=== PATIENT | male | born 1970 | race Caucasian/White ===

== ENCOUNTER 2018-03-14 22:33 | Inpatient (IN) | payer MEDICAID, OTHER ==
[~2018-03-14] VITALS: Ht 170.2 cm; Wt 95.3 kg
[~2018-03-14 22:33] MED LIST: DIVA-78 PO; HALO10 PO; QUET200T PO; TEAROS OU
[2018-03-14 23:49] LABS: BASOPHILS % (AUTO) 0.9 % (0.0-2.0); EOSINOPHILS % (AUTO) 7.4 % (1.0-6.0); HEMATOCRIT 42.7 % (41-53); HEMOGLOBIN 14.7 g/dL (13.5-17.5); LYMPHOCYTES # (AUTO) 2.2 K/uL (1.0-4.8); LYMPHOCYTES % (AUTO) 27.6 % (22.0-44.0); MEAN CORPUSCULAR HEMOGLOBIN 34.6 pg (26.0-34.0); MEAN CORPUSCULAR HGB CONC 34.5 G/dL (31.0-37.0); MEAN CORPUSCULAR VOLUME 100 fL (80-100); MONOCYTES # (AUTO) 0.9 K/uL (0.1-1.0); MONOCYTES % (AUTO) 11.1 % (2.0-9.0); NEUTROPHILS # (AUTO) 4.2 K/uL (1.8-7.7); PLATELET COUNT (AUTO) 144 K/uL (150-450); RED BLOOD CELL COUNT(AUTO) 4.26 MIL/uL (4.50-5.90); RED CELL DISTRIBUTION WIDTH 13.2 % (11.5-14.5)
[2018-03-15 00:11] LABS: ANION GAP 9 mmol/L (8-16); CARBON DIOXIDE 29 mmol/L (22-29); CHLORIDE 103 mmol/L (98-107); CREATININE 0.89 mg/dL (0.60-1.30); GLOMERULAR FILTR. RATE CALC > 60 mL/min (>60); GLUCOSE,RANDOM 100 mg/dL (70-110); POTASSIUM 3.7 mmol/L (3.5-5.1); SODIUM SERUM 141 mmol/L (136-145); UREA NITROGEN, BLOOD 10 mg/dL (7-18)
[2018-03-15 00:15] LABS: ALANINE AMINOTRANSFERASE 40 U/L (12-78); ALBUMIN 3.8 g/dL (3.4-5.0); ALKALINE PHOSPHATASE 75 U/L (46-116); ASPARTATE AMINOTRANSFERASE 37 U/L (15-37); BILIRUBIN,TOTAL 0.3 mg/dL (0.1-1.0); TOTAL PROTEIN, SERUM 6.8 g/dL (6.4-8.2)
[2018-03-15 00:44] LABS: AMPHET/METH SCREEN,URINE NEGATIVE (NEGATIVE); BARBITURATE SCREEN, URINE NEGATIVE (NEGATIVE); BENZODIAZEPINES SCREEN,URINE NEGATIVE (NEGATIVE); CANNABINOID SCREEN,URINE NEGATIVE (NEGATIVE); COCAINE SCREEN,URINE NEGATIVE (NEGATIVE); METHADONE SCREEN, URINE NEGATIVE (NEGATIVE); OPIATE SCREEN,URINE NEGATIVE (NEGATIVE); PHENCYCLIDINE SCREEN,URINE NEGATIVE (NEGATIVE)
[2018-03-15] MEDS ORDERED: HALOPERIDOL LACTATE 5 MG/ML VIAL ONE (02:52)
[2018-03-15] MEDS ORDERED: DiphenhydrAMINE HCL 50 MG/ML VIAL ONE (02:52)
[2018-03-15] MEDS ORDERED: LORazepam 2 MG/ML VIAL ONE (02:52)
[2018-03-15] MEDS ORDERED: DiphenhydrAMINE HCL 50 MG/ML VIAL IM ONE (03:00)
[2018-03-15] MEDS ORDERED: HALOPERIDOL LACTATE 5 MG/ML VIAL IM ONE (03:00)
[2018-03-15] MEDS ORDERED: LORazepam 2 MG/ML VIAL IM ONE (03:00)
[2018-03-15] MEDS ORDERED: HALOPERIDOL 5 MG TABLET PO PRN (03:30)
[2018-03-15 04:24] LABS: APPEARANCE,URINE CLEAR (CLEAR); BILIRUBIN,URINE NEGATIVE (NEGATIVE); GLUCOSE, URINE (UA) NEGATIVE (NEGATIVE); KETONES,URINE NEGATIVE (NEGATIVE); LEUKOCYTE ESTERASE ,URINE NEGATIVE (NEGATIVE); NITRATE,URINE NEGATIVE (NEGATIVE); OCCULT BLOOD,URINE NEGATIVE (NEGATIVE); PROTEIN,URINE NEGATIVE (NEGATIVE); UROBILINOGEN,URINE 0.2 mg/dL (<=1.0)
[2018-03-15] MEDS ORDERED: QUEtiapine FUMARATE 100 MG TABLET PO ONE (09:30)
[2018-03-15 16:05] VITALS: BP 115/79
[2018-03-15] MEDS: LORazepam 2 MG TABLET PO PRN (16:24)
[2018-03-15] MEDS ORDERED: CloNIDine HCL 0.1 MG TABLET PO PRN (16:45)
[2018-03-15] MEDS ORDERED: PETROLATUM,WHITE 71 GM JELLY TP PRN (16:45)
[2018-03-15] MEDS ORDERED: IBUPROFEN 400 MG TABLET PO PRN (16:45)
[2018-03-15] MEDS ORDERED: LOPERAMIDE HCL 2 MG CAPSULE PO PRN (16:45)
[2018-03-15] MEDS ORDERED: ALBUTEROL SULFATE HFA 90 MCG/PUFF 8 GM INHALER IH PRN (16:45)
[2018-03-15] MEDS ORDERED: ACETAMINOPHEN 325 MG TABLET PO PRN (16:45)
[2018-03-15] MEDS ORDERED: GuaiFENesin/D-METHORPHAN [SUGAR-FREE] 200-20MG/10 ML SYRUP UDCUP PO PRN (16:45)
[2018-03-15] MEDS ORDERED: DOCUSATE SODIUM 100 MG CAPSULE PO PRN (16:45)
[2018-03-15] MEDS ORDERED: MAGNESIUM HYDROXIDE SUSPENSION 30 ML UDCUP PO PRN (16:45)
[2018-03-15] MEDS ORDERED: ONDANSETRON HCL 4 MG TABLET PO PRN (16:45)
[2018-03-15] MEDS ORDERED: MAG HYDROX/AL HYDROX/SIMETH ES 30 ML SUSPENSION UDCUP PO PRN (16:45)
[2018-03-15] MEDS ORDERED: PNEUMOCOCCAL VACCINE POLYVALENT 0.5 ML VIAL [PPSV23] IM ONE (17:00)
[2018-03-15] MEDS: DIVALPROEX SODIUM 500 MG DR TABLET PO SCH (17:00)
[2018-03-15] MEDS: QUEtiapine FUMARATE 200 MG TABLET PO SCH (17:00)
[2018-03-16 01:12] VITALS: BP 112/77
[2018-03-16] MEDS: LORazepam 2 MG TABLET PO PRN ×3 (06:27→18:11)
[2018-03-16] MEDS: QUEtiapine FUMARATE 100 MG TABLET PO PRN ×2 (06:27→10:41)
[2018-03-16] MEDS: DIVALPROEX SODIUM 500 MG DR TABLET PO SCH ×2 (08:19→17:34)
[2018-03-16] MEDS: NICOTINE 14 MG/24 HOUR PATCH TD SCH (08:19)
[2018-03-16] MEDS: QUEtiapine FUMARATE 200 MG TABLET PO SCH ×2 (08:19→17:34)
[2018-03-16 08:34] LABS: BASOPHILS % (AUTO) 0.8 % (0.0-2.0); EOSINOPHILS % (AUTO) 5.4 % (1.0-6.0); HEMATOCRIT 46.7 % (41-53); HEMOGLOBIN 16.1 g/dL (13.5-17.5); LYMPHOCYTES # (AUTO) 1.7 K/uL (1.0-4.8); LYMPHOCYTES % (AUTO) 26.6 % (22.0-44.0); MEAN CORPUSCULAR HEMOGLOBIN 35.3 pg (26.0-34.0); MEAN CORPUSCULAR HGB CONC 34.5 G/dL (31.0-37.0); MEAN CORPUSCULAR VOLUME 102 fL (80-100); MONOCYTES # (AUTO) 0.5 K/uL (0.1-1.0); MONOCYTES % (AUTO) 8.4 % (2.0-9.0); NEUTROPHILS # (AUTO) 3.7 K/uL (1.8-7.7); NEUTROPHILS % (AUTO) 58.8 % (40.0-70.0); PLATELET COUNT (AUTO) 158 K/uL (150-450); RED BLOOD CELL COUNT(AUTO) 4.57 MIL/uL (4.50-5.90); RED CELL DISTRIBUTION WIDTH 13.3 % (11.5-14.5)
[2018-03-16 08:43] LABS: HEMOGLOBIN A1C 5.3 % (4.5-6.2)
[2018-03-16 08:47] VITALS: BP 106/75
[2018-03-16 09:03] LABS: ALANINE AMINOTRANSFERASE 37 U/L (12-78); ALBUMIN 3.8 g/dL (3.4-5.0); ALKALINE PHOSPHATASE 71 U/L (46-116); ANION GAP 8 mmol/L (8-16); ASPARTATE AMINOTRANSFERASE 28 U/L (15-37); BILIRUBIN,TOTAL 0.3 mg/dL (0.1-1.0); CALCIUM, TOTAL 8.5 mg/dL (8.8-10.5); CARBON DIOXIDE 27 mmol/L (22-29); CHLORIDE 104 mmol/L (98-107); CHOL/HDL RATIO 3.3 (4.2-7.3); CHOLESTEROL 147 mg/dL (131-200); CREATININE 0.83 mg/dL (0.60-1.30); GLOMERULAR FILTR. RATE CALC > 60 mL/min (>60); GLUCOSE,RANDOM 115 mg/dL (70-110); HDL CHOLESTEROL 44 mg/dL (40-60); LDL CHOL (CALC.) 84 mg/dL (0-130); POTASSIUM 4.2 mmol/L (3.5-5.1); SODIUM SERUM 139 mmol/L (136-145); THYROID STIMULATING HORMONE 0.95 uIU/mL (0.36-3.74); TOTAL PROTEIN, SERUM 6.9 g/dL (6.4-8.2); TRIGLYCERIDES 95 mg/dL (15-150); UREA NITROGEN, BLOOD 12 mg/dL (7-18); VALPROIC ACID 39 mcg/mL (50-100)
[2018-03-16] MEDS ORDERED: LORazepam 2 MG/ML VIAL ONE (15:05)
[2018-03-16] MEDS ORDERED: DiphenhydrAMINE HCL 50 MG/ML VIAL ONE (15:06)
[2018-03-16] MEDS ORDERED: LORazepam 2 MG/ML VIAL IM ONE (15:15)
[2018-03-16] MEDS ORDERED: DiphenhydrAMINE HCL 50 MG/ML VIAL IM ONE (15:15)
[2018-03-17 01:00] VITALS: BP 136/72
[2018-03-17] MEDS: LORazepam 2 MG TABLET PO PRN ×4 (01:22→16:09)
[2018-03-17] MEDS: QUEtiapine FUMARATE 100 MG TABLET PO PRN ×3 (01:22→10:44)
[2018-03-17 08:08] VITALS: BP 140/87
[2018-03-17] MEDS: NICOTINE 14 MG/24 HOUR PATCH TD SCH (08:43)
[2018-03-17] MEDS: QUEtiapine FUMARATE 200 MG TABLET PO SCH ×2 (08:43→16:09)
[2018-03-17] MEDS: DIVALPROEX SODIUM 500 MG DR TABLET PO SCH ×2 (08:43→16:09)
[2018-03-17 17:01] VITALS: BP 123/83
[2018-03-18] MEDS: LORazepam 2 MG TABLET PO PRN ×4 (03:10→16:23)
[2018-03-18] MEDS: QUEtiapine FUMARATE 100 MG TABLET PO PRN ×2 (03:11→12:22)
[2018-03-18 03:42] VITALS: BP 118/80
[2018-03-18] MEDS: QUEtiapine FUMARATE 200 MG TABLET PO SCH ×2 (08:15→16:23)
[2018-03-18] MEDS: NICOTINE 14 MG/24 HOUR PATCH TD SCH (08:15)
[2018-03-18] MEDS: DIVALPROEX SODIUM 500 MG DR TABLET PO SCH ×2 (08:15→16:23)
[2018-03-18 08:16] VITALS: BP 139/84
[2018-03-18 16:00] VITALS: BP 133/76
[2018-03-19] MEDS: ZOLPIDEM TARTRATE 10 MG TABLET PO PRN ×2 (00:15→20:30)
[2018-03-19] MEDS: QUEtiapine FUMARATE 100 MG TABLET PO PRN ×2 (00:15→12:23)
[2018-03-19 00:20] VITALS: BP 134/68
[2018-03-19] MEDS: LORazepam 2 MG TABLET PO PRN ×4 (06:23→20:30)
[2018-03-19] MEDS: QUEtiapine FUMARATE 200 MG TABLET PO SCH ×2 (08:31→17:09)
[2018-03-19] MEDS: NICOTINE 14 MG/24 HOUR PATCH TD SCH (08:31)
[2018-03-19] MEDS: DIVALPROEX SODIUM 250 MG DR TABLET PO SCH ×2 (08:31→17:09)
[2018-03-19 08:41] VITALS: BP 123/71
[2018-03-19 16:00] VITALS: BP 126/80
[2018-03-20 01:27] VITALS: BP 130/83
[2018-03-20] MEDS: LORazepam 2 MG TABLET PO PRN ×4 (06:29→21:05)
[2018-03-20] MEDS: HYPROMELLOSE 0.5% 15 ML OPHTHALMIC SOLUTION OU PRN ×2 (06:59→15:00)
[2018-03-20 08:04] VITALS: BP 128/81
[2018-03-20] MEDS: NICOTINE 14 MG/24 HOUR PATCH TD SCH (08:39)
[2018-03-20] MEDS: DIVALPROEX SODIUM 250 MG DR TABLET PO SCH ×2 (08:39→16:18)
[2018-03-20] MEDS: QUEtiapine FUMARATE 200 MG TABLET PO SCH ×2 (08:39→16:17)
[2018-03-20] MEDS: QUEtiapine FUMARATE 100 MG TABLET PO PRN ×2 (10:48→14:59)
[2018-03-20 17:03] VITALS: BP 126/85
[2018-03-20] MEDS: ZOLPIDEM TARTRATE 10 MG TABLET PO PRN (21:05)
[2018-03-21 00:10] VITALS: BP 128/83
[2018-03-21] MEDS: LORazepam 2 MG TABLET PO PRN ×2 (06:31→12:35)
[2018-03-21] MEDS: HYPROMELLOSE 0.5% 15 ML OPHTHALMIC SOLUTION OU PRN (07:07)
[2018-03-21 08:07] VITALS: BP 126/78
[2018-03-21] MEDS: QUEtiapine FUMARATE 200 MG TABLET PO SCH ×2 (08:25→16:33)
[2018-03-21] MEDS: DIVALPROEX SODIUM 250 MG DR TABLET PO SCH ×2 (08:25→16:33)
[2018-03-21] MEDS: NICOTINE 14 MG/24 HOUR PATCH TD SCH (08:26)
[2018-03-21 16:24] VITALS: BP 120/68
[2018-03-22 04:24] VITALS: BP 127/74
[2018-03-22] MEDS: LORazepam 2 MG TABLET PO PRN ×4 (06:36→20:33)
[2018-03-22] MEDS: QUEtiapine FUMARATE 200 MG TABLET PO SCH ×2 (08:42→16:17)
[2018-03-22] MEDS: DIVALPROEX SODIUM 250 MG DR TABLET PO SCH ×2 (08:42→16:16)
[2018-03-22] MEDS: NICOTINE 14 MG/24 HOUR PATCH TD SCH (08:44)
[2018-03-22] MEDS: QUEtiapine FUMARATE 100 MG TABLET PO PRN (13:45)
[2018-03-22 16:00] VITALS: BP 136/83
[2018-03-22] MEDS: ZOLPIDEM TARTRATE 10 MG TABLET PO PRN (20:33)
[2018-03-23 00:34] VITALS: BP 122/66
[2018-03-23] MEDS: LORazepam 2 MG TABLET PO PRN ×4 (05:30→20:56)
[2018-03-23 08:15] VITALS: BP 119/83
[2018-03-23] MEDS: QUEtiapine FUMARATE 200 MG TABLET PO SCH ×2 (08:25→16:20)
[2018-03-23] MEDS: DIVALPROEX SODIUM 250 MG DR TABLET PO SCH ×2 (08:25→16:21)
[2018-03-23] MEDS: NICOTINE 14 MG/24 HOUR PATCH TD SCH (08:28)
[2018-03-23] MEDS: QUEtiapine FUMARATE 100 MG TABLET PO PRN (12:55)
[2018-03-23 17:28] VITALS: BP 136/71
[2018-03-23] MEDS: ZOLPIDEM TARTRATE 10 MG TABLET PO PRN (20:56)
[2018-03-24 01:01] VITALS: BP 120/71
[2018-03-24] MEDS: LORazepam 2 MG TABLET PO PRN ×4 (05:05→21:26)
[2018-03-24] MEDS: QUEtiapine FUMARATE 100 MG TABLET PO PRN (05:05)
[2018-03-24] MEDS: DIVALPROEX SODIUM 250 MG DR TABLET PO SCH (08:07)
[2018-03-24] MEDS: NICOTINE 14 MG/24 HOUR PATCH TD SCH (08:08)
[2018-03-24] MEDS: QUEtiapine FUMARATE 200 MG TABLET PO SCH ×2 (08:08→16:36)
[2018-03-24 08:09] VITALS: BP 122/80
[2018-03-24] MEDS ORDERED: TUBERCULIN, PURIFIED PROTEIN DERIVATIVE 5 TU/0.1 ML SYG ID ONE (12:45)
[2018-03-24] MEDS: DIVALPROEX SODIUM 500 MG DR TABLET PO SCH (16:36)
[2018-03-24] MEDS: ZOLPIDEM TARTRATE 10 MG TABLET PO PRN (21:26)
[2018-03-25 02:03] VITALS: BP 118/79
[2018-03-25] MEDS: LORazepam 2 MG TABLET PO PRN ×4 (06:00→20:38)
[2018-03-25 08:06] VITALS: BP 140/85
[2018-03-25] MEDS: DIVALPROEX SODIUM 500 MG DR TABLET PO SCH ×2 (08:50→16:37)
[2018-03-25] MEDS: QUEtiapine FUMARATE 200 MG TABLET PO SCH ×2 (08:51→16:37)
[2018-03-25] MEDS: NICOTINE 14 MG/24 HOUR PATCH TD SCH (08:51)
[2018-03-25 16:00] VITALS: BP 136/87
[2018-03-25] MEDS: ZOLPIDEM TARTRATE 10 MG TABLET PO PRN (20:38)
[2018-03-26 01:11] VITALS: BP 126/87
[2018-03-26] MEDS: LORazepam 2 MG TABLET PO PRN ×3 (05:53→16:16)
[2018-03-26] MEDS: QUEtiapine FUMARATE 200 MG TABLET PO SCH ×2 (08:46→16:19)
[2018-03-26] MEDS: DIVALPROEX SODIUM 500 MG DR TABLET PO SCH ×2 (08:47→16:16)
[2018-03-26] MEDS: NICOTINE 14 MG/24 HOUR PATCH TD SCH (08:51)
[2018-03-26 14:34] VITALS: BP 139/84
[2018-03-26 16:00] VITALS: BP 125/81
[2018-03-27 06:07] VITALS: BP 132/82
[2018-03-27] MEDS: LORazepam 2 MG TABLET PO PRN ×2 (07:04→16:51)
[2018-03-27 08:06] VITALS: BP 133/80
[2018-03-27] MEDS: DIVALPROEX SODIUM 500 MG DR TABLET PO SCH ×2 (08:22→16:51)
[2018-03-27] MEDS: NICOTINE 14 MG/24 HOUR PATCH TD SCH (08:23)
[2018-03-27] MEDS: QUEtiapine FUMARATE 200 MG TABLET PO SCH ×2 (08:23→16:51)
[2018-03-27 16:54] VITALS: BP 101/63
[2018-03-28 05:22] VITALS: BP 109/67
[2018-03-28] MEDS: LORazepam 2 MG TABLET PO PRN (06:53)
[2018-03-28] MEDS: NICOTINE 14 MG/24 HOUR PATCH TD SCH (09:00)
[2018-03-28] MEDS: DIVALPROEX SODIUM 500 MG DR TABLET PO SCH ×2 (09:17→16:17)
[2018-03-28] MEDS: QUEtiapine FUMARATE 200 MG TABLET PO SCH ×2 (09:18→16:17)
[2018-03-28 09:49] VITALS: BP 101/60
[2018-03-28 16:19] VITALS: BP 121/65
[2018-03-29 05:02] VITALS: BP 146/82
[2018-03-29] MEDS: LORazepam 2 MG TABLET PO PRN ×3 (05:08→20:15)
[2018-03-29 08:06] VITALS: BP 136/78
[2018-03-29] MEDS: QUEtiapine FUMARATE 200 MG TABLET PO SCH ×2 (08:52→16:42)
[2018-03-29] MEDS: DIVALPROEX SODIUM 500 MG DR TABLET PO SCH ×2 (08:52→16:43)
[2018-03-29] MEDS: NICOTINE 14 MG/24 HOUR PATCH TD SCH (08:53)
[2018-03-29 16:24] VITALS: BP 111/70
[2018-03-29] MEDS: ZOLPIDEM TARTRATE 10 MG TABLET PO PRN (20:15)
[2018-03-30 05:45] VITALS: BP 127/73
[2018-03-30 08:04] VITALS: BP 115/64
[2018-03-30] MEDS: QUEtiapine FUMARATE 200 MG TABLET PO SCH ×2 (08:39→16:35)
[2018-03-30] MEDS: DIVALPROEX SODIUM 500 MG DR TABLET PO SCH ×2 (08:39→16:35)
[2018-03-30] MEDS: NICOTINE 14 MG/24 HOUR PATCH TD SCH (08:43)
[2018-03-30] MEDS: LORazepam 2 MG TABLET PO PRN ×3 (12:18→20:37)
[2018-03-30 16:36] VITALS: BP 120/71
[2018-03-30] MEDS: ZOLPIDEM TARTRATE 10 MG TABLET PO PRN (20:37)
[2018-03-31 06:24] VITALS: BP 129/70
[2018-03-31] MEDS: LORazepam 2 MG TABLET PO PRN ×3 (07:01→21:14)
[2018-03-31 08:07] VITALS: BP 119/67
[2018-03-31] MEDS: QUEtiapine FUMARATE 200 MG TABLET PO SCH ×2 (08:51→16:28)
[2018-03-31] MEDS: DIVALPROEX SODIUM 500 MG DR TABLET PO SCH ×2 (08:51→16:28)
[2018-03-31] MEDS: NICOTINE 14 MG/24 HOUR PATCH TD SCH (09:00)
[2018-03-31 16:20] VITALS: BP 130/77
[2018-03-31] MEDS: ZOLPIDEM TARTRATE 10 MG TABLET PO PRN (21:14)
[2018-04-01 03:03] VITALS: BP 129/80
[2018-04-01] MEDS: LORazepam 2 MG TABLET PO PRN ×4 (05:25→20:55)
[2018-04-01] MEDS: QUEtiapine FUMARATE 100 MG TABLET PO PRN ×2 (07:03→11:52)
[2018-04-01 08:18] VITALS: BP 139/92
[2018-04-01] MEDS: QUEtiapine FUMARATE 200 MG TABLET PO SCH ×2 (08:48→16:52)
[2018-04-01] MEDS: DIVALPROEX SODIUM 500 MG DR TABLET PO SCH ×2 (08:48→16:52)
[2018-04-01] MEDS: NICOTINE 14 MG/24 HOUR PATCH TD SCH (08:48)
[2018-04-01 16:05] VITALS: BP 134/79
[2018-04-01] MEDS: ZOLPIDEM TARTRATE 10 MG TABLET PO PRN (20:46)
[2018-04-02 00:41] VITALS: BP 118/74
[2018-04-02] MEDS: QUEtiapine FUMARATE 100 MG TABLET PO PRN (06:18)
[2018-04-02 08:05] VITALS: BP 112/66
[2018-04-02] MEDS: DIVALPROEX SODIUM 500 MG DR TABLET PO SCH ×2 (08:40→16:16)
[2018-04-02] MEDS: QUEtiapine FUMARATE 200 MG TABLET PO SCH ×2 (08:40→16:15)
[2018-04-02] MEDS: NICOTINE 14 MG/24 HOUR PATCH TD SCH (08:46)
[2018-04-02 16:44] VITALS: BP 107/86
[2018-04-02] MEDS: LORazepam 2 MG TABLET PO PRN (20:41)
[2018-04-03 05:50] VITALS: BP 117/79
[2018-04-03 08:05] VITALS: BP 131/81
[2018-04-03] MEDS: QUEtiapine FUMARATE 200 MG TABLET PO SCH ×2 (08:21→16:48)
[2018-04-03] MEDS: DIVALPROEX SODIUM 500 MG DR TABLET PO SCH ×2 (08:21→16:48)
[2018-04-03] MEDS: NICOTINE 14 MG/24 HOUR PATCH TD SCH (08:26)
[2018-04-04 05:58] VITALS: BP 116/75
[2018-04-04] MEDS: QUEtiapine FUMARATE 200 MG TABLET PO SCH ×2 (08:23→16:27)
[2018-04-04] MEDS: DIVALPROEX SODIUM 500 MG DR TABLET PO SCH ×2 (08:24→16:27)
[2018-04-04] MEDS: NICOTINE 14 MG/24 HOUR PATCH TD SCH (08:26)
[2018-04-04 09:22] VITALS: BP 108/65
[2018-04-04 16:00] VITALS: BP 112/68
[2018-04-05 03:08] VITALS: BP 117/69
[2018-04-05 08:23] VITALS: BP 139/78
[2018-04-05] MEDS: QUEtiapine FUMARATE 200 MG TABLET PO SCH ×2 (08:26→16:57)
[2018-04-05] MEDS: DIVALPROEX SODIUM 500 MG DR TABLET PO SCH ×2 (08:26→16:57)
[2018-04-05] MEDS: NICOTINE 14 MG/24 HOUR PATCH TD SCH (08:30)
[2018-04-05 16:00] VITALS: BP 128/85
[2018-04-06 06:10] VITALS: BP 124/82
[2018-04-06 08:12] VITALS: BP 118/78
[2018-04-06] MEDS: QUEtiapine FUMARATE 200 MG TABLET PO SCH (08:40)
[2018-04-06] MEDS: DIVALPROEX SODIUM 500 MG DR TABLET PO SCH (08:40)
[2018-04-06] MEDS: NICOTINE 14 MG/24 HOUR PATCH TD SCH (09:00)
[2018-04-06] MEDS: HYPROMELLOSE 0.5% 15 ML OPHTHALMIC SOLUTION OU PRN (11:11)
[2018-04-06] MEDS ORDERED: DIVA-78 PO ×2 (11:36)
== END 2018-04-06 13:30 | disposition home or self-care (01) | DRG 750 ==
LOC: EMS 22:34 → B3A 03-15 13:52
PROVIDERS: ADMIT Psychiatry & Neurology Psychiatry; ATTEND Psychiatry & Neurology Psychiatry
DX: F20.0 Paranoid schizophrenia (principal); R45.851 Suicidal ideations; K74.60 Unspecified cirrhosis of liver; Z91.14 Patient's other noncompliance with medication regimen; F17.210 Nicotine dependence, cigarettes, uncomplicated; I10 Essential (primary) hypertension; J44.9 Chronic obstructive pulmonary disease, unspecified; R45.87 Impulsiveness; E78.5 Hyperlipidemia, unspecified; F17.200 Nicotine dependence, unspecified, uncomplicated; F10.10 Alcohol abuse, uncomplicated; D64.9 Anemia, unspecified; K21.9 Gastro-esophageal reflux disease without esophagitis; F99 Mental disorder, not otherwise specified; F41.9 Anxiety disorder, unspecified
CPT/HCPCS: 83036; 84443; 87081; 96372; 99291; G0480; J1200; J1630; J2060; J3230

== ENCOUNTER 2018-08-19 06:19 | Emergency (ER) | payer MEDICAID, OTHER ==
[~2018-08-19] VITALS: Ht 177.8 cm; Wt 109.1 kg
[~2018-08-19 06:19] MED LIST changes: -HALO10 PO; -TEAROS OU
[2018-08-19] MEDS ORDERED: QUET200T PO (06:34)
[2018-08-19] MEDS ORDERED: DiphenhydrAMINE HCL 50 MG/ML VIAL IM ONE (09:30)
[2018-08-19] MEDS ORDERED: LORazepam 2 MG/ML VIAL IM ONE (09:30)
[2018-08-19] MEDS ORDERED: HALOPERIDOL LACTATE 5 MG/ML VIAL IM ONE (09:30)
[2018-08-19 09:50] LABS: BASOPHILS % (AUTO) 0.7 % (0.0-2.0); EOSINOPHILS % (AUTO) 1.3 % (1.0-6.0); HEMATOCRIT 44.1 % (41-53); HEMOGLOBIN 15.1 g/dL (13.5-17.5); LYMPHOCYTES % (AUTO) 18.7 % (22.0-44.0); MEAN CORPUSCULAR HEMOGLOBIN 34.6 pg (26.0-34.0); MEAN CORPUSCULAR HGB CONC 34.2 G/dL (31.0-37.0); MEAN CORPUSCULAR VOLUME 101 fL (80-100); MONOCYTES # (AUTO) 0.4 K/uL (0.1-1.0); MONOCYTES % (AUTO) 6.4 % (2.0-9.0); NEUTROPHILS # (AUTO) 4.1 K/uL (1.8-7.7); NEUTROPHILS % (AUTO) 72.9 % (40.0-70.0); PLATELET COUNT (AUTO) 158 K/uL (150-450); RED BLOOD CELL COUNT(AUTO) 4.36 MIL/uL (4.50-5.90); RED CELL DISTRIBUTION WIDTH 12.7 % (11.5-14.5)
[2018-08-19 10:02] LABS: ANION GAP 10 mmol/L (8-16); CALCIUM, TOTAL 9.3 mg/dL (8.8-10.5); CARBON DIOXIDE 27 mmol/L (22-29); CHLORIDE 102 mmol/L (98-107); GLOMERULAR FILTR. RATE CALC > 60 mL/min (>60); GLUCOSE,RANDOM 98 mg/dL (70-110); POTASSIUM 3.9 mmol/L (3.5-5.1); SODIUM SERUM 139 mmol/L (136-145); UREA NITROGEN, BLOOD 8 mg/dL (7-18)
[2018-08-19 10:09] LABS: ALANINE AMINOTRANSFERASE 35 U/L (12-78); ALBUMIN 4.2 g/dL (3.4-5.0); ALKALINE PHOSPHATASE 87 U/L (46-116); ASPARTATE AMINOTRANSFERASE 30 U/L (15-37); BILIRUBIN,TOTAL 0.5 mg/dL (0.1-1.0); TOTAL PROTEIN, SERUM 7.5 g/dL (6.4-8.2)
[2018-08-19 10:20] VITALS: BP 132/94
[2018-08-19 10:52] LABS: AMPHET/METH SCREEN,URINE NEGATIVE (NEGATIVE); BARBITURATE SCREEN, URINE NEGATIVE (NEGATIVE); BENZODIAZEPINES SCREEN,URINE NEGATIVE (NEGATIVE); CANNABINOID SCREEN,URINE NEGATIVE (NEGATIVE); COCAINE SCREEN,URINE NEGATIVE (NEGATIVE); METHADONE SCREEN, URINE NEGATIVE (NEGATIVE); OPIATE SCREEN,URINE NEGATIVE (NEGATIVE)
[2018-08-19 10:53] LABS: PHENCYCLIDINE SCREEN,URINE NEGATIVE (NEGATIVE)
== END 2018-08-19 11:44 | disposition home or self-care (01) ==
LOC: EMS 06:23
DX: F20.0 Paranoid schizophrenia (principal); F41.9 Anxiety disorder, unspecified; F31.9 Bipolar disorder, unspecified; I10 Essential (primary) hypertension; J44.9 Chronic obstructive pulmonary disease, unspecified; F17.210 Nicotine dependence, cigarettes, uncomplicated
CPT/HCPCS: 36415; 80053; 80307; 85025; 96372; 99284; 99406; G0480; J1200; J1630; J2060

== ENCOUNTER 2018-08-22 05:05 | Inpatient (IN) | payer MEDICAID, OTHER ==
[~2018-08-22] VITALS: Ht 172.7 cm; Wt 92.2 kg
[~2018-08-22 05:05] MED LIST changes: -DIVA-78 PO
[2018-08-22 10:17] LABS: BASOPHILS % (AUTO) 0.6 % (0.0-2.0); EOSINOPHILS % (AUTO) 2.3 % (1.0-6.0); HEMATOCRIT 42.4 % (41-53); HEMOGLOBIN 14.6 g/dL (13.5-17.5); LYMPHOCYTES # (AUTO) 1.2 K/uL (1.0-4.8); LYMPHOCYTES % (AUTO) 19.5 % (22.0-44.0); MEAN CORPUSCULAR HEMOGLOBIN 34.9 pg (26.0-34.0); MEAN CORPUSCULAR HGB CONC 34.4 G/dL (31.0-37.0); MEAN CORPUSCULAR VOLUME 101 fL (80-100); MONOCYTES # (AUTO) 0.5 K/uL (0.1-1.0); MONOCYTES % (AUTO) 7.1 % (2.0-9.0); NEUTROPHILS # (AUTO) 4.5 K/uL (1.8-7.7); NEUTROPHILS % (AUTO) 70.5 % (40.0-70.0); PLATELET COUNT (AUTO) 160 K/uL (150-450); RED BLOOD CELL COUNT(AUTO) 4.18 MIL/uL (4.50-5.90); RED CELL DISTRIBUTION WIDTH 12.9 % (11.5-14.5)
[2018-08-22 10:38] LABS: ANION GAP 9 mmol/L (8-16); CALCIUM, TOTAL 9.2 mg/dL (8.8-10.5); CARBON DIOXIDE 25 mmol/L (22-29); CHLORIDE 105 mmol/L (98-107); CREATININE 0.79 mg/dL (0.60-1.30); GLOMERULAR FILTR. RATE CALC > 60 mL/min (>60); GLUCOSE,RANDOM 102 mg/dL (70-110); SODIUM SERUM 139 mmol/L (136-145); UREA NITROGEN, BLOOD 9 mg/dL (7-18)
[2018-08-22 10:44] LABS: ALANINE AMINOTRANSFERASE 42 U/L (12-78); ALBUMIN 3.9 g/dL (3.4-5.0); ALKALINE PHOSPHATASE 92 U/L (46-116); ASPARTATE AMINOTRANSFERASE 45 U/L (15-37); BILIRUBIN,TOTAL 0.5 mg/dL (0.1-1.0); TOTAL PROTEIN, SERUM 7.3 g/dL (6.4-8.2)
[2018-08-22] MEDS: HALOPERIDOL 5 MG TABLET PO PRN (16:04)
[2018-08-22] MEDS: LORazepam 2 MG TABLET PO PRN (16:04)
[2018-08-22 16:34] LABS: VALPROIC ACID < 2 mcg/mL (50-100)
[2018-08-22] MEDS: DIVALPROEX SODIUM 500 MG ER TABLET PO SCH (21:41)
[2018-08-22] MEDS: QUEtiapine FUMARATE 200 MG TABLET PO SCH (21:42)
[2018-08-22 22:00] LABS: AMPHET/METH SCREEN,URINE NEGATIVE (NEGATIVE); BARBITURATE SCREEN, URINE NEGATIVE (NEGATIVE); BENZODIAZEPINES SCREEN,URINE NEGATIVE (NEGATIVE); CANNABINOID SCREEN,URINE NEGATIVE (NEGATIVE); COCAINE SCREEN,URINE NEGATIVE (NEGATIVE); METHADONE SCREEN, URINE NEGATIVE (NEGATIVE); OPIATE SCREEN,URINE NEGATIVE (NEGATIVE)
[2018-08-22 22:08] LABS: PHENCYCLIDINE SCREEN,URINE NEGATIVE (NEGATIVE)
[2018-08-23 01:05] VITALS: BP 113/68
[2018-08-23] MEDS: ZOLPIDEM TARTRATE 10 MG TABLET PO PRN ×2 (01:16→21:38)
[2018-08-23] MEDS: LORazepam 2 MG TABLET PO PRN ×4 (01:16→21:38)
[2018-08-23] MEDS ORDERED: PNEUMOCOCCAL VACCINE POLYVALENT 0.5 ML VIAL [PPSV23] IM ONE (02:45)
[2018-08-23 08:02] VITALS: BP 112/61
[2018-08-23] MEDS: DIVALPROEX SODIUM 500 MG ER TABLET PO SCH ×2 (08:17→20:26)
[2018-08-23] MEDS: QUEtiapine FUMARATE 200 MG TABLET PO SCH ×2 (08:17→16:35)
[2018-08-23] MEDS ORDERED: HALOPERIDOL LACTATE 5 MG/ML VIAL IM ONE (09:15)
[2018-08-23] MEDS ORDERED: DiphenhydrAMINE HCL 50 MG/ML VIAL IM ONE (09:15)
[2018-08-23] MEDS ORDERED: LORazepam 2 MG/ML VIAL ONE (09:15)
[2018-08-23] MEDS ORDERED: LORazepam 2 MG/ML VIAL IM ONE (09:15)
[2018-08-23] MEDS ORDERED: HALOPERIDOL LACTATE 5 MG/ML VIAL ONE (09:16)
[2018-08-23] MEDS ORDERED: DiphenhydrAMINE HCL 50 MG/ML VIAL ONE (09:16)
[2018-08-23 16:00] VITALS: BP 119/65
[2018-08-23] MEDS: HALOPERIDOL 5 MG TABLET PO PRN (21:38)
[2018-08-24] MEDS: LORazepam 2 MG TABLET PO PRN ×4 (02:43→16:30)
[2018-08-24] MEDS: HALOPERIDOL 5 MG TABLET PO PRN ×4 (02:43→16:30)
[2018-08-24 02:44] VITALS: BP 115/78
[2018-08-24 08:01] VITALS: BP 132/72
[2018-08-24] MEDS: DIVALPROEX SODIUM 500 MG ER TABLET PO SCH ×2 (08:16→20:47)
[2018-08-24] MEDS: QUEtiapine FUMARATE 200 MG TABLET PO SCH ×2 (08:16→16:30)
[2018-08-24 17:03] VITALS: BP 128/86
[2018-08-24] MEDS: ZOLPIDEM TARTRATE 10 MG TABLET PO PRN (22:41)
[2018-08-25 04:45] VITALS: BP 116/82
[2018-08-25] MEDS: LORazepam 2 MG TABLET PO PRN ×3 (04:50→17:11)
[2018-08-25] MEDS: DIVALPROEX SODIUM 500 MG ER TABLET PO SCH ×2 (08:08→20:34)
[2018-08-25] MEDS: QUEtiapine FUMARATE 200 MG TABLET PO SCH ×2 (08:08→16:26)
[2018-08-25] MEDS ORDERED: ALBUTEROL SULFATE HFA 90 MCG/PUFF 8 GM INHALER IH PRN (14:30)
[2018-08-25] MEDS ORDERED: GuaiFENesin/D-METHORPHAN [SUGAR-FREE] 200-20MG/10 ML SYRUP UDCUP PO PRN (14:30)
[2018-08-25] MEDS ORDERED: LOPERAMIDE HCL 2 MG CAPSULE PO PRN (14:30)
[2018-08-25] MEDS ORDERED: NICOTINE 14 MG/24 HOUR PATCH TD PRN (14:30)
[2018-08-25] MEDS ORDERED: ONDANSETRON HCL 4 MG TABLET PO PRN (14:30)
[2018-08-25] MEDS ORDERED: ACETAMINOPHEN 325 MG TABLET PO PRN (14:30)
[2018-08-25] MEDS ORDERED: CloNIDine HCL 0.1 MG TABLET PO PRN (14:30)
[2018-08-25] MEDS ORDERED: MAG HYDROX/AL HYDROX/SIMETH ES 30 ML SUSPENSION UDCUP PO PRN (14:30)
[2018-08-25] MEDS ORDERED: DOCUSATE SODIUM 100 MG CAPSULE PO PRN (14:30)
[2018-08-25] MEDS ORDERED: IBUPROFEN 400 MG TABLET PO PRN (14:30)
[2018-08-25] MEDS ORDERED: MAGNESIUM HYDROXIDE SUSPENSION 30 ML UDCUP PO PRN (14:30)
[2018-08-25] MEDS ORDERED: PETROLATUM,WHITE 28 GM JELLY TP PRN (14:30)
[2018-08-25 16:05] VITALS: BP 124/84
[2018-08-25] MEDS: HALOPERIDOL 5 MG TABLET PO PRN (16:26)
[2018-08-26 00:33] VITALS: BP 129/88
[2018-08-26] MEDS: HALOPERIDOL 5 MG TABLET PO PRN ×2 (06:53→16:40)
[2018-08-26] MEDS: LORazepam 2 MG TABLET PO PRN ×2 (06:53→16:40)
[2018-08-26 08:07] VITALS: BP 118/80
[2018-08-26] MEDS: DIVALPROEX SODIUM 500 MG ER TABLET PO SCH ×2 (08:40→20:08)
[2018-08-26] MEDS: QUEtiapine FUMARATE 200 MG TABLET PO SCH ×2 (08:40→16:40)
[2018-08-26 16:42] VITALS: BP 129/83
[2018-08-26] MEDS: ZOLPIDEM TARTRATE 10 MG TABLET PO PRN (20:09)
[2018-08-27] MEDS: HALOPERIDOL 5 MG TABLET PO PRN ×3 (06:34→23:57)
[2018-08-27] MEDS: LORazepam 2 MG TABLET PO PRN ×3 (06:34→23:57)
[2018-08-27 06:35] VITALS: BP 128/82
[2018-08-27 08:10] VITALS: BP 121/75
[2018-08-27] MEDS: QUEtiapine FUMARATE 200 MG TABLET PO SCH ×2 (08:53→16:47)
[2018-08-27] MEDS: DIVALPROEX SODIUM 500 MG ER TABLET PO SCH ×2 (08:53→20:48)
[2018-08-27 16:14] VITALS: BP 125/84
[2018-08-28 00:46] VITALS: BP 118/75
[2018-08-28] MEDS: LORazepam 2 MG TABLET PO PRN (06:45)
[2018-08-28] MEDS: HALOPERIDOL 5 MG TABLET PO PRN (06:45)
[2018-08-28 07:46] LABS: CHOL/HDL RATIO 3.5 (4.2-7.3)
[2018-08-28 08:04] VITALS: BP 139/90
[2018-08-28] MEDS: QUEtiapine FUMARATE 200 MG TABLET PO SCH ×2 (08:45→16:50)
[2018-08-28] MEDS: DIVALPROEX SODIUM 500 MG ER TABLET PO SCH ×2 (08:45→21:16)
[2018-08-28] MEDS ORDERED: LACTULOSE 20 GM/30 ML SOLUTION UDCUP PO ONE (09:30)
[2018-08-28 16:32] VITALS: BP 127/85
[2018-08-29 00:11] VITALS: BP 115/76
[2018-08-29] MEDS: QUEtiapine FUMARATE 200 MG TABLET PO SCH ×2 (09:00→16:05)
[2018-08-29] MEDS: DIVALPROEX SODIUM 500 MG ER TABLET PO SCH ×2 (09:00→20:26)
[2018-08-29 09:05] VITALS: BP 121/91
[2018-08-29] MEDS: LACTULOSE 20 GM/30 ML SOLUTION UDCUP PO SCH ×2 (09:28→16:05)
[2018-08-29] MEDS: HALOPERIDOL 5 MG TABLET PO PRN ×2 (13:41→17:48)
[2018-08-29] MEDS: LORazepam 2 MG TABLET PO PRN ×2 (13:41→17:48)
[2018-08-29 16:17] VITALS: BP 146/93
[2018-08-30 03:45] VITALS: BP 142/79
[2018-08-30] MEDS: HALOPERIDOL 5 MG TABLET PO PRN (03:45)
[2018-08-30] MEDS: LORazepam 2 MG TABLET PO PRN (03:45)
[2018-08-30 08:24] VITALS: BP 125/78
[2018-08-30] MEDS: LACTULOSE 20 GM/30 ML SOLUTION UDCUP PO SCH ×2 (08:27→16:35)
[2018-08-30] MEDS: DIVALPROEX SODIUM 500 MG ER TABLET PO SCH ×2 (08:27→20:22)
[2018-08-30] MEDS: QUEtiapine FUMARATE 200 MG TABLET PO SCH ×2 (08:27→16:35)
[2018-08-31 02:51] VITALS: BP 133/82
[2018-08-31] MEDS: LACTULOSE 20 GM/30 ML SOLUTION UDCUP PO SCH ×2 (08:02→16:19)
[2018-08-31] MEDS: QUEtiapine FUMARATE 200 MG TABLET PO SCH ×2 (08:02→16:19)
[2018-08-31] MEDS: DIVALPROEX SODIUM 500 MG ER TABLET PO SCH ×2 (08:02→20:33)
[2018-08-31 08:12] VITALS: BP 135/93
[2018-08-31 16:00] VITALS: BP 142/89
[2018-09-01 00:01] VITALS: BP 147/84
[2018-09-01] MEDS: LORazepam 2 MG TABLET PO PRN (06:23)
[2018-09-01 08:03] VITALS: BP 148/80
[2018-09-01] MEDS: DIVALPROEX SODIUM 500 MG ER TABLET PO SCH ×2 (08:09→20:15)
[2018-09-01] MEDS: LACTULOSE 20 GM/30 ML SOLUTION UDCUP PO SCH ×2 (08:09→16:34)
[2018-09-01] MEDS: QUEtiapine FUMARATE 200 MG TABLET PO SCH ×2 (08:09→16:34)
[2018-09-01 16:01] VITALS: BP 141/83
[2018-09-01] MEDS: RIFAXIMIN 550 MG TABLET PO SCH (16:35)
[2018-09-02 00:07] VITALS: BP 128/97
[2018-09-02] MEDS: DIVALPROEX SODIUM 500 MG ER TABLET PO SCH ×2 (08:04→20:22)
[2018-09-02] MEDS: LACTULOSE 20 GM/30 ML SOLUTION UDCUP PO SCH ×2 (08:04→16:39)
[2018-09-02] MEDS: RIFAXIMIN 550 MG TABLET PO SCH ×2 (08:04→16:39)
[2018-09-02] MEDS: QUEtiapine FUMARATE 200 MG TABLET PO SCH ×2 (08:04→16:39)
[2018-09-02 08:29] VITALS: BP 139/84
[2018-09-02] MEDS ORDERED: DiphenhydrAMINE HCL 50 MG/ML VIAL IM ONE (09:30)
[2018-09-02] MEDS ORDERED: HALOPERIDOL LACTATE 5 MG/ML VIAL IM ONE (09:30)
[2018-09-02] MEDS ORDERED: LORazepam 2 MG/ML VIAL IM ONE (09:30)
[2018-09-02 16:04] VITALS: BP 138/68
[2018-09-03 02:11] VITALS: BP 132/81
[2018-09-03] MEDS: HALOPERIDOL 5 MG TABLET PO PRN (03:58)
[2018-09-03] MEDS: LORazepam 2 MG TABLET PO PRN (03:58)
[2018-09-03] MEDS: DIVALPROEX SODIUM 500 MG ER TABLET PO SCH ×2 (08:15→20:10)
[2018-09-03] MEDS: QUEtiapine FUMARATE 200 MG TABLET PO SCH ×2 (08:15→16:07)
[2018-09-03] MEDS: LACTULOSE 20 GM/30 ML SOLUTION UDCUP PO SCH ×2 (08:15→16:08)
[2018-09-03] MEDS: RIFAXIMIN 550 MG TABLET PO SCH ×2 (08:15→16:07)
[2018-09-03 08:19] VITALS: BP 139/83
[2018-09-03 17:24] VITALS: BP 136/87
[2018-09-04 00:52] VITALS: BP 139/93
[2018-09-04] MEDS: LACTULOSE 20 GM/30 ML SOLUTION UDCUP PO SCH ×2 (08:15→16:32)
[2018-09-04] MEDS: DIVALPROEX SODIUM 500 MG ER TABLET PO SCH ×2 (08:15→21:00)
[2018-09-04] MEDS: QUEtiapine FUMARATE 200 MG TABLET PO SCH ×2 (08:15→16:32)
[2018-09-04] MEDS: RIFAXIMIN 550 MG TABLET PO SCH ×2 (08:15→16:32)
[2018-09-04 08:19] VITALS: BP 118/98
[2018-09-04 16:14] VITALS: BP 128/86
[2018-09-04] MEDS: HALOPERIDOL 5 MG TABLET PO PRN (16:32)
[2018-09-04] MEDS: LORazepam 2 MG TABLET PO PRN (16:32)
[2018-09-05 05:06] VITALS: BP 129/85
[2018-09-05 08:12] VITALS: BP 114/88
[2018-09-05 08:26] LABS: BASOPHILS % (AUTO) 0.4 % (0.0-2.0); EOSINOPHILS % (AUTO) 1.6 % (1.0-6.0); HEMATOCRIT 45.7 % (41-53); HEMOGLOBIN 15.6 g/dL (13.5-17.5); LYMPHOCYTES # (AUTO) 1.4 K/uL (1.0-4.8); LYMPHOCYTES % (AUTO) 15.1 % (22.0-44.0); MEAN CORPUSCULAR HGB CONC 34.2 G/dL (31.0-37.0); MEAN CORPUSCULAR VOLUME 102 fL (80-100); MONOCYTES # (AUTO) 0.8 K/uL (0.1-1.0); MONOCYTES % (AUTO) 8.9 % (2.0-9.0); NEUTROPHILS # (AUTO) 6.7 K/uL (1.8-7.7); PLATELET COUNT (AUTO) 155 K/uL (150-450); RED BLOOD CELL COUNT(AUTO) 4.46 MIL/uL (4.50-5.90); RED CELL DISTRIBUTION WIDTH 12.9 % (11.5-14.5)
[2018-09-05] MEDS: RIFAXIMIN 550 MG TABLET PO SCH ×2 (08:26→16:31)
[2018-09-05] MEDS: QUEtiapine FUMARATE 200 MG TABLET PO SCH ×2 (08:26→16:31)
[2018-09-05] MEDS: LACTULOSE 20 GM/30 ML SOLUTION UDCUP PO SCH ×2 (08:26→16:31)
[2018-09-05] MEDS: DIVALPROEX SODIUM 500 MG ER TABLET PO SCH ×2 (08:26→20:03)
[2018-09-05 08:45] LABS: ALANINE AMINOTRANSFERASE 31 U/L (12-78); ALBUMIN 3.6 g/dL (3.4-5.0); ALKALINE PHOSPHATASE 98 U/L (46-116); ANION GAP 7 mmol/L (8-16); ASPARTATE AMINOTRANSFERASE 42 U/L (15-37); BILIRUBIN,TOTAL 0.4 mg/dL (0.1-1.0); CARBON DIOXIDE 28 mmol/L (22-29); CHLORIDE 103 mmol/L (98-107); CREATININE 0.83 mg/dL (0.60-1.30); GLOMERULAR FILTR. RATE CALC > 60 mL/min (>60); GLUCOSE,RANDOM 88 mg/dL (70-110); POTASSIUM 4.4 mmol/L (3.5-5.1); SODIUM SERUM 138 mmol/L (136-145); UREA NITROGEN, BLOOD 15 mg/dL (7-18); VALPROIC ACID 98 mcg/mL (50-100)
[2018-09-05] MEDS: LORazepam 2 MG TABLET PO PRN (16:31)
[2018-09-05] MEDS: HALOPERIDOL 5 MG TABLET PO PRN (16:31)
[2018-09-05 18:05] VITALS: BP 127/85
[2018-09-05] MEDS: ZOLPIDEM TARTRATE 10 MG TABLET PO PRN (20:04)
[2018-09-06 01:06] VITALS: BP 121/89
[2018-09-06 08:32] VITALS: BP 139/84
[2018-09-06] MEDS: RIFAXIMIN 550 MG TABLET PO SCH ×2 (08:41→16:22)
[2018-09-06] MEDS: DIVALPROEX SODIUM 500 MG ER TABLET PO SCH ×2 (08:41→20:34)
[2018-09-06] MEDS: QUEtiapine FUMARATE 200 MG TABLET PO SCH ×2 (08:42→16:22)
[2018-09-06] MEDS: LACTULOSE 20 GM/30 ML SOLUTION UDCUP PO SCH ×2 (08:42→16:22)
[2018-09-06] MEDS ORDERED: DiphenhydrAMINE HCL 50 MG/ML VIAL IM ONE ×2 (09:00→13:45)
[2018-09-06] MEDS ORDERED: LORazepam 2 MG/ML VIAL IM ONE ×2 (09:00→13:45)
[2018-09-06] MEDS ORDERED: HALOPERIDOL LACTATE 5 MG/ML VIAL IM ONE ×2 (09:00→13:45)
[2018-09-06 16:00] VITALS: BP 116/71
[2018-09-06] MEDS: LITHIUM CARBONATE 300 MG CAPSULE PO SCH (16:22)
[2018-09-06] MEDS: TraZODone HCL 100 MG TABLET PO SCH (20:34)
[2018-09-07 02:19] VITALS: BP 122/75
[2018-09-07 08:42] VITALS: BP 140/95
[2018-09-07] MEDS: RIFAXIMIN 550 MG TABLET PO SCH ×2 (09:04→17:07)
[2018-09-07] MEDS: QUEtiapine FUMARATE 200 MG TABLET PO SCH ×2 (09:04→17:07)
[2018-09-07] MEDS: LACTULOSE 20 GM/30 ML SOLUTION UDCUP PO SCH ×2 (09:04→17:08)
[2018-09-07] MEDS: LITHIUM CARBONATE 300 MG CAPSULE PO SCH ×2 (09:04→17:07)
[2018-09-07] MEDS: DIVALPROEX SODIUM 500 MG ER TABLET PO SCH ×2 (09:04→20:31)
[2018-09-07] MEDS ORDERED: DiphenhydrAMINE HCL 50 MG/ML VIAL ONE (15:58)
[2018-09-07] MEDS ORDERED: HALOPERIDOL LACTATE 5 MG/ML VIAL ONE (15:58)
[2018-09-07] MEDS ORDERED: LORazepam 2 MG/ML VIAL ONE (15:58)
[2018-09-07 16:00] VITALS: BP 134/86
[2018-09-07] MEDS ORDERED: DiphenhydrAMINE HCL 50 MG/ML VIAL IM ONE (16:00)
[2018-09-07] MEDS ORDERED: LORazepam 2 MG/ML VIAL IM ONE (16:00)
[2018-09-07] MEDS ORDERED: HALOPERIDOL LACTATE 5 MG/ML VIAL IM ONE (16:00)
[2018-09-07] MEDS: LORazepam 2 MG TABLET PO PRN (17:08)
[2018-09-07] MEDS: TraZODone HCL 100 MG TABLET PO SCH (20:31)
[2018-09-08 05:21] VITALS: BP 134/88
[2018-09-08 08:15] VITALS: BP 123/83
[2018-09-08] MEDS: LITHIUM CARBONATE 300 MG CAPSULE PO SCH ×2 (08:36→16:21)
[2018-09-08] MEDS: RIFAXIMIN 550 MG TABLET PO SCH ×2 (08:36→16:24)
[2018-09-08] MEDS: DIVALPROEX SODIUM 500 MG ER TABLET PO SCH ×2 (08:36→20:56)
[2018-09-08] MEDS: QUEtiapine FUMARATE 200 MG TABLET PO SCH ×2 (08:36→16:22)
[2018-09-08] MEDS: LACTULOSE 20 GM/30 ML SOLUTION UDCUP PO SCH ×2 (08:36→16:21)
[2018-09-08] MEDS: HALOPERIDOL 5 MG TABLET PO PRN ×2 (08:36→16:22)
[2018-09-08 16:01] VITALS: BP 134/98
[2018-09-08] MEDS: LORazepam 2 MG TABLET PO PRN (16:22)
[2018-09-08] MEDS: TraZODone HCL 100 MG TABLET PO SCH (20:56)
[2018-09-09 00:30] VITALS: BP 141/82
[2018-09-09 07:51] LABS: BASOPHILS % (AUTO) 0.8 % (0.0-2.0); EOSINOPHILS % (AUTO) 3.4 % (1.0-6.0); HEMOGLOBIN 15.2 g/dL (13.5-17.5); LYMPHOCYTES # (AUTO) 1.5 K/uL (1.0-4.8); LYMPHOCYTES % (AUTO) 19.6 % (22.0-44.0); MEAN CORPUSCULAR HGB CONC 33.7 G/dL (31.0-37.0); MEAN CORPUSCULAR VOLUME 104 fL (80-100); MONOCYTES # (AUTO) 0.9 K/uL (0.1-1.0); MONOCYTES % (AUTO) 11.6 % (2.0-9.0); NEUTROPHILS # (AUTO) 4.9 K/uL (1.8-7.7); NEUTROPHILS % (AUTO) 64.6 % (40.0-70.0); PLATELET COUNT (AUTO) 147 K/uL (150-450); RED BLOOD CELL COUNT(AUTO) 4.34 MIL/uL (4.50-5.90); RED CELL DISTRIBUTION WIDTH 12.9 % (11.5-14.5)
[2018-09-09 08:02] LABS: LITHIUM 0.27 mmol/L (0.60-1.20)
[2018-09-09] MEDS: DIVALPROEX SODIUM 500 MG ER TABLET PO SCH ×2 (08:10→20:05)
[2018-09-09] MEDS: LITHIUM CARBONATE 300 MG CAPSULE PO SCH (08:10)
[2018-09-09] MEDS: LACTULOSE 20 GM/30 ML SOLUTION UDCUP PO SCH ×2 (08:10→16:06)
[2018-09-09] MEDS: QUEtiapine FUMARATE 200 MG TABLET PO SCH ×2 (08:10→16:06)
[2018-09-09] MEDS: RIFAXIMIN 550 MG TABLET PO SCH ×2 (08:10→16:06)
[2018-09-09 08:26] LABS: ALANINE AMINOTRANSFERASE 30 U/L (12-78); ALBUMIN 3.7 g/dL (3.4-5.0); ALKALINE PHOSPHATASE 123 U/L (46-116); ANION GAP 4 mmol/L (8-16); ASPARTATE AMINOTRANSFERASE 26 U/L (15-37); BILIRUBIN,TOTAL 0.3 mg/dL (0.1-1.0); CALCIUM, TOTAL 9.1 mg/dL (8.8-10.5); CARBON DIOXIDE 31 mmol/L (22-29); CHLORIDE 105 mmol/L (98-107); CREATININE 0.88 mg/dL (0.60-1.30); GLOMERULAR FILTR. RATE CALC > 60 mL/min (>60); GLUCOSE,RANDOM 75 mg/dL (70-110); POTASSIUM 4.8 mmol/L (3.5-5.1); SODIUM SERUM 140 mmol/L (136-145); TOTAL PROTEIN, SERUM 7.2 g/dL (6.4-8.2); UREA NITROGEN, BLOOD 18 mg/dL (7-18)
[2018-09-09] MEDS: LORazepam 2 MG TABLET PO PRN ×2 (11:22→16:06)
[2018-09-09] MEDS: HALOPERIDOL 5 MG TABLET PO PRN ×2 (11:22→16:06)
[2018-09-09 16:07] VITALS: BP 144/87
[2018-09-09] MEDS ORDERED: LITHIUM CARBONATE 300 MG TABLET PO SCH (17:00)
[2018-09-09] MEDS: TraZODone HCL 100 MG TABLET PO SCH (20:05)
[2018-09-10 00:19] VITALS: BP 109/89
[2018-09-10] MEDS: HALOPERIDOL 5 MG TABLET PO PRN ×2 (05:07→16:33)
[2018-09-10] MEDS: LORazepam 2 MG TABLET PO PRN ×2 (05:07→16:33)
[2018-09-10 08:02] VITALS: BP 140/66
[2018-09-10] MEDS ORDERED: LORazepam 2 MG/ML VIAL ONE (08:09)
[2018-09-10] MEDS ORDERED: DiphenhydrAMINE HCL 50 MG/ML VIAL ONE (08:10)
[2018-09-10] MEDS ORDERED: DiphenhydrAMINE HCL 50 MG/ML VIAL IM ONE (08:15)
[2018-09-10] MEDS ORDERED: LORazepam 2 MG/ML VIAL IM ONE (08:15)
[2018-09-10] MEDS: RIFAXIMIN 550 MG TABLET PO SCH ×2 (08:53→16:33)
[2018-09-10] MEDS: QUEtiapine FUMARATE 200 MG TABLET PO SCH ×2 (08:53→16:33)
[2018-09-10] MEDS: DIVALPROEX SODIUM 500 MG ER TABLET PO SCH ×2 (08:53→20:29)
[2018-09-10] MEDS: LACTULOSE 20 GM/30 ML SOLUTION UDCUP PO SCH ×2 (08:53→16:32)
[2018-09-10] MEDS ORDERED: LITHIUM CARBONATE 450 MG ER TABLET PO SCH (09:00)
[2018-09-10 16:01] VITALS: BP 120/74
[2018-09-10] MEDS: LITHIUM CARBONATE 300 MG ER TABLET PO SCH (16:33)
[2018-09-10] MEDS: TraZODone HCL 100 MG TABLET PO SCH (20:29)
[2018-09-10] MEDS: ZOLPIDEM TARTRATE 10 MG TABLET PO PRN (20:29)
[2018-09-11 00:05] VITALS: BP 129/70
[2018-09-11] MEDS: HALOPERIDOL 5 MG TABLET PO PRN ×2 (00:16→12:51)
[2018-09-11] MEDS: LORazepam 2 MG TABLET PO PRN (00:16)
[2018-09-11 08:02] VITALS: BP 109/86
[2018-09-11] MEDS: DIVALPROEX SODIUM 500 MG ER TABLET PO SCH ×2 (08:17→20:35)
[2018-09-11] MEDS: QUEtiapine FUMARATE 200 MG TABLET PO SCH ×2 (08:17→16:58)
[2018-09-11] MEDS: LACTULOSE 20 GM/30 ML SOLUTION UDCUP PO SCH ×2 (08:17→16:58)
[2018-09-11] MEDS: LITHIUM CARBONATE 300 MG ER TABLET PO SCH ×2 (08:18→16:58)
[2018-09-11] MEDS: RIFAXIMIN 550 MG TABLET PO SCH ×2 (08:18→16:58)
[2018-09-11] MEDS ORDERED: DiphenhydrAMINE HCL 50 MG/ML VIAL IM ONE ×2 (14:15→16:00)
[2018-09-11] MEDS ORDERED: LORazepam 2 MG/ML VIAL IM ONE ×2 (14:15→16:00)
[2018-09-11] MEDS ORDERED: HALOPERIDOL LACTATE 5 MG/ML VIAL IM ONE (14:15)
[2018-09-11 17:11] VITALS: BP 127/89
[2018-09-11] MEDS: TraZODone HCL 100 MG TABLET PO SCH (20:35)
[2018-09-12 00:33] VITALS: BP 107/65
[2018-09-12] MEDS: LACTULOSE 20 GM/30 ML SOLUTION UDCUP PO SCH ×2 (08:26→16:21)
[2018-09-12] MEDS: QUEtiapine FUMARATE 200 MG TABLET PO SCH ×2 (08:26→16:21)
[2018-09-12] MEDS: RIFAXIMIN 550 MG TABLET PO SCH ×2 (08:27→16:21)
[2018-09-12] MEDS: DIVALPROEX SODIUM 500 MG ER TABLET PO SCH ×2 (08:27→20:34)
[2018-09-12] MEDS: LITHIUM CARBONATE 300 MG ER TABLET PO SCH ×2 (08:27→16:21)
[2018-09-12 08:48] VITALS: BP 141/83
[2018-09-12] MEDS: HALOPERIDOL 5 MG TABLET PO PRN (11:38)
[2018-09-12] MEDS: LORazepam 2 MG TABLET PO PRN ×2 (11:39→16:21)
[2018-09-12 17:22] VITALS: BP 116/77
[2018-09-12] MEDS: TraZODone HCL 100 MG TABLET PO SCH (20:34)
[2018-09-13 01:11] VITALS: BP 118/81
[2018-09-13 08:21] VITALS: BP 116/60
[2018-09-13] MEDS: DIVALPROEX SODIUM 500 MG ER TABLET PO SCH ×2 (08:51→20:06)
[2018-09-13] MEDS: HALOPERIDOL 5 MG TABLET PO PRN (08:51)
[2018-09-13] MEDS: QUEtiapine FUMARATE 200 MG TABLET PO SCH ×2 (08:51→16:42)
[2018-09-13] MEDS: RIFAXIMIN 550 MG TABLET PO SCH ×2 (08:51→16:42)
[2018-09-13] MEDS: LORazepam 2 MG TABLET PO PRN ×2 (08:51→16:43)
[2018-09-13] MEDS: LACTULOSE 20 GM/30 ML SOLUTION UDCUP PO SCH ×2 (08:51→16:42)
[2018-09-13] MEDS: LITHIUM CARBONATE 300 MG ER TABLET PO SCH ×2 (08:54→16:42)
[2018-09-13 16:01] VITALS: BP 122/77
[2018-09-13] MEDS: ChlorproMAZINE HCL 50 MG TABLET PO PRN (16:43)
[2018-09-13] MEDS: TraZODone HCL 100 MG TABLET PO SCH (20:06)
[2018-09-13] MEDS: ZOLPIDEM TARTRATE 10 MG TABLET PO PRN (20:06)
[2018-09-14 00:32] VITALS: BP 124/87
[2018-09-14] MEDS: ChlorproMAZINE HCL 50 MG TABLET PO PRN (08:01)
[2018-09-14] MEDS: LITHIUM CARBONATE 300 MG ER TABLET PO SCH (08:01)
[2018-09-14] MEDS: QUEtiapine FUMARATE 200 MG TABLET PO SCH (08:01)
[2018-09-14] MEDS: LACTULOSE 20 GM/30 ML SOLUTION UDCUP PO SCH (08:01)
[2018-09-14] MEDS: RIFAXIMIN 550 MG TABLET PO SCH (08:02)
[2018-09-14] MEDS: DIVALPROEX SODIUM 500 MG ER TABLET PO SCH (08:02)
[2018-09-14 08:06] VITALS: BP 139/84
[2018-09-14] MEDS ORDERED: LACT30L PO (12:24)
[2018-09-14] MEDS ORDERED: LITH600 PO (12:24)
[2018-09-14] MEDS ORDERED: RIFAX550 PO (12:24)
[2018-09-14] MEDS ORDERED: DIVA-78 PO ×2 (12:24)
== END 2018-09-14 12:40 | disposition home or self-care (01) | DRG 750 ==
LOC: EMS 05:08 → B3A 23:35
PROVIDERS: ADMIT Psychiatry & Neurology Psychiatry; ATTEND Psychiatry & Neurology Psychiatry
DX: F20.0 Paranoid schizophrenia (principal); G93.40 Encephalopathy, unspecified; K74.60 Unspecified cirrhosis of liver; R45.850 Homicidal ideations; E78.5 Hyperlipidemia, unspecified; I10 Essential (primary) hypertension; J44.9 Chronic obstructive pulmonary disease, unspecified; F17.210 Nicotine dependence, cigarettes, uncomplicated; D64.9 Anemia, unspecified; F10.10 Alcohol abuse, uncomplicated
CPT/HCPCS: 84443; 90732; G0480; J1200; J1630; J2060; J3230; J3535

== ENCOUNTER 2018-09-15 15:28 | Emergency (ER) | payer MEDICAID, OTHER ==
[~2018-09-15] VITALS: Ht 175.3 cm; Wt 180.0 kg
[~2018-09-15 15:28] MED LIST changes: +DIVA-78 PO; +LACT30L PO; +LITH600 PO; +RIFAX550 PO
[2018-09-15 16:19] LABS: BASOPHILS % (AUTO) 0.9 % (0.0-2.0); EOSINOPHILS % (AUTO) 4.7 % (1.0-6.0); HEMATOCRIT 39.6 % (41-53); HEMOGLOBIN 13.7 g/dL (13.5-17.5); LYMPHOCYTES # (AUTO) 1.5 K/uL (1.0-4.8); LYMPHOCYTES % (AUTO) 23.4 % (22.0-44.0); MEAN CORPUSCULAR HEMOGLOBIN 34.9 pg (26.0-34.0); MEAN CORPUSCULAR HGB CONC 34.5 G/dL (31.0-37.0); MEAN CORPUSCULAR VOLUME 101 fL (80-100); MONOCYTES # (AUTO) 0.9 K/uL (0.1-1.0); MONOCYTES % (AUTO) 14.4 % (2.0-9.0); NEUTROPHILS # (AUTO) 3.6 K/uL (1.8-7.7); NEUTROPHILS % (AUTO) 56.6 % (40.0-70.0); PLATELET COUNT (AUTO) 118 K/uL (150-450); RED BLOOD CELL COUNT(AUTO) 3.92 MIL/uL (4.50-5.90)
[2018-09-15 16:32] LABS: ANION GAP 5 mmol/L (8-16); CALCIUM, TOTAL 8.7 mg/dL (8.8-10.5); CARBON DIOXIDE 25 mmol/L (22-29); CHLORIDE 103 mmol/L (98-107); CREATININE 0.93 mg/dL (0.60-1.30); GLOMERULAR FILTR. RATE CALC > 60 mL/min (>60); GLUCOSE,RANDOM 89 mg/dL (70-110); POTASSIUM 3.8 mmol/L (3.5-5.1); SODIUM SERUM 133 mmol/L (136-145); UREA NITROGEN, BLOOD 8 mg/dL (7-18)
[2018-09-15 16:38] LABS: LITHIUM 0.77 mmol/L (0.60-1.20)
[2018-09-15 16:39] LABS: ALANINE AMINOTRANSFERASE 20 U/L (12-78); ALBUMIN 3.2 g/dL (3.4-5.0); ALKALINE PHOSPHATASE 76 U/L (46-116); ASPARTATE AMINOTRANSFERASE 23 U/L (15-37); BILIRUBIN,TOTAL 0.5 mg/dL (0.1-1.0); TOTAL PROTEIN, SERUM 6.4 g/dL (6.4-8.2); VALPROIC ACID 101 mcg/mL (50-100)
[2018-09-15 17:30] LABS: AMPHET/METH SCREEN,URINE NEGATIVE (NEGATIVE); BARBITURATE SCREEN, URINE NEGATIVE (NEGATIVE); BENZODIAZEPINES SCREEN,URINE NEGATIVE (NEGATIVE); CANNABINOID SCREEN,URINE NEGATIVE (NEGATIVE); COCAINE SCREEN,URINE NEGATIVE (NEGATIVE); METHADONE SCREEN, URINE NEGATIVE (NEGATIVE); OPIATE SCREEN,URINE NEGATIVE (NEGATIVE)
[2018-09-15 17:41] LABS: PHENCYCLIDINE SCREEN,URINE NEGATIVE (NEGATIVE)
[2018-09-15] MEDS ORDERED: LORazepam 1 MG TABLET PO ONE (18:00)
[2018-09-15] MEDS ORDERED: LORazepam 2 MG TABLET PO ONE (18:00)
[2018-09-15 18:35] VITALS: BP 134/83
== END 2018-09-15 19:54 | disposition home or self-care (01) ==
LOC: EMS 15:28
DX: F41.9 Anxiety disorder, unspecified (principal); F20.9 Schizophrenia, unspecified; F17.210 Nicotine dependence, cigarettes, uncomplicated; J44.9 Chronic obstructive pulmonary disease, unspecified; I10 Essential (primary) hypertension; F10.20 Alcohol dependence, uncomplicated; F31.9 Bipolar disorder, unspecified; Z79.899 Other long term (current) drug therapy
CPT/HCPCS: 36415; 80053; 80164; 80307; 80178; 85025; 99284; 99406; G0480

== ENCOUNTER 2018-09-26 15:40 | Emergency (ER) | payer OTHER ==
[~2018-09-26] VITALS: Ht 172.7 cm; Wt 88.0 kg
[2018-09-26 16:13] LABS: BASOPHILS % (AUTO) 1.1 % (0.0-2.0); EOSINOPHILS % (AUTO) 4.9 % (1.0-6.0); HEMATOCRIT 40.7 % (41-53); HEMOGLOBIN 13.9 g/dL (13.5-17.5); LYMPHOCYTES # (AUTO) 1.6 K/uL (1.0-4.8); LYMPHOCYTES % (AUTO) 23.8 % (22.0-44.0); MEAN CORPUSCULAR HEMOGLOBIN 35.6 pg (26.0-34.0); MEAN CORPUSCULAR HGB CONC 34.2 G/dL (31.0-37.0); MEAN CORPUSCULAR VOLUME 104 fL (80-100); MONOCYTES # (AUTO) 0.5 K/uL (0.1-1.0); MONOCYTES % (AUTO) 7.8 % (2.0-9.0); NEUTROPHILS # (AUTO) 4.3 K/uL (1.8-7.7); NEUTROPHILS % (AUTO) 62.4 % (40.0-70.0); PLATELET COUNT (AUTO) 147 K/uL (150-450); RED BLOOD CELL COUNT(AUTO) 3.92 MIL/uL (4.50-5.90); RED CELL DISTRIBUTION WIDTH 13.5 % (11.5-14.5)
[2018-09-26 16:25] LABS: ANION GAP 7 mmol/L (8-16); CALCIUM, TOTAL 8.9 mg/dL (8.8-10.5); CARBON DIOXIDE 27 mmol/L (22-29); CHLORIDE 95 mmol/L (98-107); GLOMERULAR FILTR. RATE CALC > 60 mL/min (>60); GLUCOSE,RANDOM 83 mg/dL (70-110); POTASSIUM 4.1 mmol/L (3.5-5.1); SODIUM SERUM 129 mmol/L (136-145); UREA NITROGEN, BLOOD 7 mg/dL (7-18)
[2018-09-26 16:32] LABS: ALANINE AMINOTRANSFERASE 30 U/L (12-78); ALBUMIN 3.6 g/dL (3.4-5.0); ALKALINE PHOSPHATASE 73 U/L (46-116); ASPARTATE AMINOTRANSFERASE 20 U/L (15-37); BILIRUBIN,TOTAL 0.6 mg/dL (0.1-1.0); TOTAL PROTEIN, SERUM 6.8 g/dL (6.4-8.2)
[2018-09-26 16:49] LABS: GLUCOSE,POINT OF CARE 94 MG/DL (70-110)
[2018-09-26 17:40] LABS: VALPROIC ACID 12 mcg/mL (50-100)
[2018-09-26 17:52] LABS: LITHIUM < 0.20 mmol/L (0.60-1.20)
[2018-09-26] MEDS ORDERED: LACTULOSE 20 GM/30 ML SOLUTION UDCUP PO ONE (18:00)
[2018-09-26] MEDS ORDERED: DIVALPROEX SODIUM 500 MG ER TABLET PO ONE (18:00)
[2018-09-26] MEDS ORDERED: LITHIUM CARBONATE 600 MG CAPSULE PO ONE (18:00)
[2018-09-26] MEDS ORDERED: QUEtiapine FUMARATE 100 MG TABLET PO ONE (18:00)
[2018-09-26 20:34] VITALS: BP 122/69
== END 2018-09-26 20:42 | disposition home or self-care (01) ==
LOC: EMS 15:42
DX: F20.0 Paranoid schizophrenia (principal); E87.1 Hypo-osmolality and hyponatremia; F41.9 Anxiety disorder, unspecified; F17.210 Nicotine dependence, cigarettes, uncomplicated; F31.9 Bipolar disorder, unspecified; J44.9 Chronic obstructive pulmonary disease, unspecified; I10 Essential (primary) hypertension
CPT/HCPCS: 36415; 80053; 80164; 80178; 82140; 82962; 85025; 99284; 99406; G0480

== ENCOUNTER 2018-09-27 12:59 | Inpatient (IN) | payer MEDICAID ==
[~2018-09-27] VITALS: Ht 172.7 cm; Wt 88.5 kg
[2018-09-27 17:00] VITALS: BP 138/78
[2018-09-27 17:25] VITALS: BP 130/74
[2018-09-27] MEDS ORDERED: PNEUMOCOCCAL VACCINE POLYVALENT 0.5 ML VIAL [PPSV23] IM ONE (17:30)
[2018-09-27] MEDS: HALOPERIDOL 5 MG TABLET PO PRN (17:44)
[2018-09-27] MEDS: LORazepam 2 MG TABLET PO PRN (17:44)
[2018-09-27] MEDS: QUEtiapine FUMARATE 200 MG TABLET PO SCH (17:44)
[2018-09-27] MEDS: LITHIUM CARBONATE 600 MG CAPSULE PO SCH (17:44)
[2018-09-27] MEDS ORDERED: LORazepam 2 MG/ML VIAL IM ONE (18:45)
[2018-09-27] MEDS ORDERED: DiphenhydrAMINE HCL 50 MG/ML VIAL IM ONE (18:45)
[2018-09-27] MEDS ORDERED: PETROLATUM,WHITE 28 GM JELLY TP PRN (19:45)
[2018-09-27] MEDS ORDERED: LOPERAMIDE HCL 2 MG CAPSULE PO PRN (19:45)
[2018-09-27] MEDS ORDERED: MAG HYDROX/AL HYDROX/SIMETH ES 30 ML SUSPENSION UDCUP PO PRN (19:45)
[2018-09-27] MEDS ORDERED: ALBUTEROL SULFATE HFA 90 MCG/PUFF 8 GM INHALER IH PRN (19:45)
[2018-09-27] MEDS ORDERED: CloNIDine HCL 0.1 MG TABLET PO PRN (19:45)
[2018-09-27] MEDS ORDERED: GuaiFENesin/D-METHORPHAN [SUGAR-FREE] 200-20MG/10 ML SYRUP UDCUP PO PRN (19:45)
[2018-09-27] MEDS ORDERED: NICOTINE 14 MG/24 HOUR PATCH TD PRN (19:45)
[2018-09-27] MEDS ORDERED: DOCUSATE SODIUM 100 MG CAPSULE PO PRN (19:45)
[2018-09-27] MEDS ORDERED: ACETAMINOPHEN 325 MG TABLET PO PRN (19:45)
[2018-09-27] MEDS ORDERED: ONDANSETRON HCL 4 MG TABLET PO PRN (19:45)
[2018-09-27] MEDS ORDERED: MAGNESIUM HYDROXIDE SUSPENSION 30 ML UDCUP PO PRN (19:45)
[2018-09-27] MEDS ORDERED: IBUPROFEN 400 MG TABLET PO PRN (19:45)
[2018-09-27] MEDS: DIVALPROEX SODIUM 500 MG DR TABLET PO SCH (21:00)
[2018-09-28 05:13] VITALS: BP 118/71
[2018-09-28 08:02] VITALS: BP 111/71
[2018-09-28] MEDS: LITHIUM CARBONATE 600 MG CAPSULE PO SCH ×2 (08:23→16:45)
[2018-09-28] MEDS: QUEtiapine FUMARATE 200 MG TABLET PO SCH ×3 (08:23→16:45)
[2018-09-28] MEDS: DIVALPROEX SODIUM 500 MG DR TABLET PO SCH ×2 (08:35→20:10)
[2018-09-28] MEDS: HALOPERIDOL 5 MG TABLET PO PRN ×2 (08:40→13:15)
[2018-09-28] MEDS: LORazepam 2 MG TABLET PO PRN ×3 (08:40→20:10)
[2018-09-28] MEDS ORDERED: LACTULOSE 20 GM/30 ML SOLUTION UDCUP PO PRN (12:45)
[2018-09-28 16:02] VITALS: BP 110/69
[2018-09-28] MEDS: RIFAXIMIN 550 MG TABLET PO SCH (16:45)
[2018-09-28] MEDS: ZOLPIDEM TARTRATE 10 MG TABLET PO PRN (21:04)
[2018-09-28] MEDS: TraZODone HCL 100 MG TABLET PO SCH (21:04)
[2018-09-29 00:16] VITALS: BP 121/64
[2018-09-29] MEDS: LORazepam 2 MG TABLET PO PRN ×4 (03:39→17:14)
[2018-09-29] MEDS: HALOPERIDOL 5 MG TABLET PO PRN ×2 (05:28→13:00)
[2018-09-29] MEDS: RIFAXIMIN 550 MG TABLET PO SCH ×2 (08:07→17:14)
[2018-09-29] MEDS: QUEtiapine FUMARATE 200 MG TABLET PO SCH ×3 (08:08→17:14)
[2018-09-29] MEDS: LITHIUM CARBONATE 600 MG CAPSULE PO SCH ×2 (08:08→17:14)
[2018-09-29] MEDS: DIVALPROEX SODIUM 500 MG DR TABLET PO SCH ×2 (08:08→20:58)
[2018-09-29 08:37] LABS: BASOPHILS % (AUTO) 0.7 % (0.0-2.0); EOSINOPHILS % (AUTO) 4.3 % (1.0-6.0); HEMATOCRIT 42.2 % (41-53); HEMOGLOBIN 14.1 g/dL (13.5-17.5); LYMPHOCYTES # (AUTO) 1.4 K/uL (1.0-4.8); LYMPHOCYTES % (AUTO) 14.7 % (22.0-44.0); MEAN CORPUSCULAR HEMOGLOBIN 35.2 pg (26.0-34.0); MEAN CORPUSCULAR HGB CONC 33.5 G/dL (31.0-37.0); MEAN CORPUSCULAR VOLUME 105 fL (80-100); MONOCYTES # (AUTO) 0.6 K/uL (0.1-1.0); MONOCYTES % (AUTO) 6.5 % (2.0-9.0); NEUTROPHILS % (AUTO) 73.8 % (40.0-70.0); PLATELET COUNT (AUTO) 137 K/uL (150-450); RED BLOOD CELL COUNT(AUTO) 4.01 MIL/uL (4.50-5.90); RED CELL DISTRIBUTION WIDTH 13.9 % (11.5-14.5)
[2018-09-29 08:49] LABS: HEMOGLOBIN A1C 5.3 % (4.5-6.2)
[2018-09-29 09:05] LABS: ALANINE AMINOTRANSFERASE 30 U/L (12-78); ALBUMIN 3.5 g/dL (3.4-5.0); ALKALINE PHOSPHATASE 82 U/L (46-116); ANION GAP 5 mmol/L (8-16); ASPARTATE AMINOTRANSFERASE 30 U/L (15-37); BILIRUBIN,TOTAL 0.4 mg/dL (0.1-1.0); CARBON DIOXIDE 31 mmol/L (22-29); CHLORIDE 100 mmol/L (98-107); CHOL/HDL RATIO 2.7 (4.2-7.3); CHOLESTEROL 133 mg/dL (131-200); FREE T4 (FREE THYROXINE) 1.14 ng/dL (0.76-1.46); GLOMERULAR FILTR. RATE CALC > 60 mL/min (>60); GLUCOSE,RANDOM 56 mg/dL (70-110); HDL CHOLESTEROL 49 mg/dL (40-60); LDL CHOL (CALC.) 69 mg/dL (0-130); POTASSIUM 4.3 mmol/L (3.5-5.1); SODIUM SERUM 136 mmol/L (136-145); THYROID STIMULATING HORMONE 2.11 uIU/mL (0.36-3.74); TOTAL PROTEIN, SERUM 6.7 g/dL (6.4-8.2); TRIGLYCERIDES 74 mg/dL (15-150); UREA NITROGEN, BLOOD 11 mg/dL (7-18)
[2018-09-29 16:00] VITALS: BP 112/67
[2018-09-29] MEDS: TraZODone HCL 100 MG TABLET PO SCH (20:58)
[2018-09-29] MEDS: ZOLPIDEM TARTRATE 10 MG TABLET PO PRN (20:58)
[2018-09-30 00:04] VITALS: BP 106/60
[2018-09-30] MEDS: LORazepam 2 MG TABLET PO PRN ×4 (04:06→16:45)
[2018-09-30] MEDS: QUEtiapine FUMARATE 200 MG TABLET PO SCH ×3 (08:09→16:38)
[2018-09-30] MEDS: DIVALPROEX SODIUM 500 MG DR TABLET PO SCH ×2 (08:09→20:43)
[2018-09-30] MEDS: LITHIUM CARBONATE 600 MG CAPSULE PO SCH ×2 (08:09→16:38)
[2018-09-30 08:31] VITALS: BP 137/79
[2018-09-30] MEDS: RIFAXIMIN 550 MG TABLET PO SCH ×2 (09:06→16:38)
[2018-09-30] MEDS: HALOPERIDOL 5 MG TABLET PO PRN (10:04)
[2018-09-30 16:00] VITALS: BP 112/73
[2018-09-30] MEDS: TraZODone HCL 100 MG TABLET PO SCH (20:42)
[2018-09-30] MEDS: ChlorproMAZINE HCL 50 MG TABLET PO PRN (20:43)
[2018-09-30] MEDS: ZOLPIDEM TARTRATE 10 MG TABLET PO PRN (20:43)
[2018-10-01 00:11] VITALS: BP 112/68
[2018-10-01] MEDS: LORazepam 2 MG TABLET PO PRN ×4 (03:37→19:06)
[2018-10-01] MEDS: LITHIUM CARBONATE 600 MG CAPSULE PO SCH ×2 (08:14→16:50)
[2018-10-01] MEDS: QUEtiapine FUMARATE 200 MG TABLET PO SCH ×3 (08:14→16:50)
[2018-10-01] MEDS: DIVALPROEX SODIUM 500 MG DR TABLET PO SCH ×2 (08:14→20:45)
[2018-10-01] MEDS: RIFAXIMIN 550 MG TABLET PO SCH ×2 (08:15→16:50)
[2018-10-01 08:16] VITALS: BP 122/70
[2018-10-01] MEDS: ChlorproMAZINE HCL 50 MG TABLET PO PRN ×2 (14:34→20:45)
[2018-10-01 16:11] VITALS: BP 126/87
[2018-10-01] MEDS: ZOLPIDEM TARTRATE 10 MG TABLET PO PRN (20:45)
[2018-10-01] MEDS: TraZODone HCL 100 MG TABLET PO SCH (20:45)
[2018-10-02 00:26] VITALS: BP 122/81
[2018-10-02] MEDS: LORazepam 2 MG TABLET PO PRN ×2 (05:18→16:41)
[2018-10-02] MEDS: ChlorproMAZINE HCL 50 MG TABLET PO PRN ×2 (05:18→16:41)
[2018-10-02 08:08] VITALS: BP 113/71
[2018-10-02] MEDS: QUEtiapine FUMARATE 200 MG TABLET PO SCH ×3 (08:34→16:41)
[2018-10-02] MEDS: LITHIUM CARBONATE 600 MG CAPSULE PO SCH ×2 (08:34→16:41)
[2018-10-02] MEDS: RIFAXIMIN 550 MG TABLET PO SCH ×2 (08:34→16:40)
[2018-10-02] MEDS: DIVALPROEX SODIUM 500 MG DR TABLET PO SCH ×2 (08:35→20:20)
[2018-10-02 16:14] VITALS: BP 128/78
[2018-10-02] MEDS: ZOLPIDEM TARTRATE 10 MG TABLET PO PRN (20:21)
[2018-10-02] MEDS: TraZODone HCL 100 MG TABLET PO SCH (20:21)
[2018-10-03 00:15] VITALS: BP 124/81
[2018-10-03] MEDS: ChlorproMAZINE HCL 50 MG TABLET PO PRN ×2 (00:47→16:38)
[2018-10-03] MEDS: LORazepam 2 MG TABLET PO PRN ×2 (00:47→16:38)
[2018-10-03 08:13] VITALS: BP 120/77
[2018-10-03 08:24] LABS: APPEARANCE,URINE CLEAR (CLEAR); BILIRUBIN,URINE NEGATIVE (NEGATIVE); GLUCOSE, URINE (UA) NEGATIVE (NEGATIVE); KETONES,URINE NEGATIVE (NEGATIVE); LEUKOCYTE ESTERASE ,URINE NEGATIVE (NEGATIVE); NITRATE,URINE NEGATIVE (NEGATIVE); OCCULT BLOOD,URINE NEGATIVE (NEGATIVE); PH,URINE 7.5 (5.0-8.0); PROTEIN,URINE NEGATIVE (NEGATIVE); UROBILINOGEN,URINE 0.2 mg/dL (<=1.0)
[2018-10-03] MEDS: QUEtiapine FUMARATE 200 MG TABLET PO SCH ×3 (08:26→16:38)
[2018-10-03] MEDS: DIVALPROEX SODIUM 500 MG DR TABLET PO SCH ×2 (08:27→20:15)
[2018-10-03] MEDS: LITHIUM CARBONATE 600 MG CAPSULE PO SCH ×2 (08:27→16:38)
[2018-10-03] MEDS: RIFAXIMIN 550 MG TABLET PO SCH ×2 (08:27→16:38)
[2018-10-03 08:30] LABS: AMPHET/METH SCREEN,URINE NEGATIVE (NEGATIVE); BARBITURATE SCREEN, URINE NEGATIVE (NEGATIVE); BENZODIAZEPINES SCREEN,URINE NEGATIVE (NEGATIVE); CANNABINOID SCREEN,URINE NEGATIVE (NEGATIVE); COCAINE SCREEN,URINE NEGATIVE (NEGATIVE); METHADONE SCREEN, URINE NEGATIVE (NEGATIVE); OPIATE SCREEN,URINE NEGATIVE (NEGATIVE)
[2018-10-03 08:31] LABS: PHENCYCLIDINE SCREEN,URINE NEGATIVE (NEGATIVE)
[2018-10-03 16:03] VITALS: BP 100/74
[2018-10-03] MEDS: TraZODone HCL 100 MG TABLET PO SCH (20:14)
[2018-10-03] MEDS: ZOLPIDEM TARTRATE 10 MG TABLET PO PRN (20:15)
[2018-10-04 01:02] VITALS: BP 127/74
[2018-10-04] MEDS: ChlorproMAZINE HCL 50 MG TABLET PO PRN ×3 (01:02→20:54)
[2018-10-04] MEDS: LORazepam 2 MG TABLET PO PRN ×4 (01:02→20:54)
[2018-10-04 08:13] VITALS: BP 112/64
[2018-10-04] MEDS: RIFAXIMIN 550 MG TABLET PO SCH ×2 (08:39→16:21)
[2018-10-04] MEDS: DIVALPROEX SODIUM 500 MG DR TABLET PO SCH ×2 (08:39→20:54)
[2018-10-04] MEDS: LITHIUM CARBONATE 600 MG CAPSULE PO SCH ×2 (08:40→16:21)
[2018-10-04] MEDS: QUEtiapine FUMARATE 200 MG TABLET PO SCH ×3 (08:40→16:21)
[2018-10-04] MEDS ORDERED: HALOPERIDOL LACTATE 5 MG/ML VIAL ONE (12:54)
[2018-10-04] MEDS: HALOPERIDOL LACTATE 5 MG/ML VIAL IM PRN (13:07)
[2018-10-04] MEDS: ZOLPIDEM TARTRATE 10 MG TABLET PO PRN (20:54)
[2018-10-04] MEDS: TraZODone HCL 100 MG TABLET PO SCH (20:54)
[2018-10-05 00:38] VITALS: BP 119/72
[2018-10-05] MEDS: LORazepam 2 MG TABLET PO PRN ×2 (01:34→16:11)
[2018-10-05 08:00] VITALS: BP 122/71
[2018-10-05] MEDS: RIFAXIMIN 550 MG TABLET PO SCH ×2 (08:10→16:10)
[2018-10-05] MEDS: QUEtiapine FUMARATE 200 MG TABLET PO SCH ×3 (08:10→16:11)
[2018-10-05] MEDS: LITHIUM CARBONATE 600 MG CAPSULE PO SCH ×2 (08:10→16:10)
[2018-10-05] MEDS: DIVALPROEX SODIUM 500 MG DR TABLET PO SCH ×2 (08:11→21:29)
[2018-10-05 16:00] VITALS: BP 112/70
[2018-10-05] MEDS: ChlorproMAZINE HCL 50 MG TABLET PO PRN (16:11)
[2018-10-05] MEDS: TraZODone HCL 100 MG TABLET PO SCH (21:29)
[2018-10-06] MEDS: LORazepam 2 MG TABLET PO PRN ×4 (01:36→17:09)
[2018-10-06 02:08] VITALS: BP 125/82
[2018-10-06 08:02] VITALS: BP 117/82
[2018-10-06] MEDS: RIFAXIMIN 550 MG TABLET PO SCH ×2 (08:43→16:17)
[2018-10-06] MEDS: LITHIUM CARBONATE 600 MG CAPSULE PO SCH ×2 (08:43→16:17)
[2018-10-06] MEDS: QUEtiapine FUMARATE 200 MG TABLET PO SCH ×3 (08:43→16:17)
[2018-10-06] MEDS: DIVALPROEX SODIUM 500 MG DR TABLET PO SCH ×2 (08:43→21:23)
[2018-10-06] MEDS: ChlorproMAZINE HCL 50 MG TABLET PO PRN ×2 (13:00→17:09)
[2018-10-06 17:20] VITALS: BP 136/82
[2018-10-06] MEDS: TraZODone HCL 100 MG TABLET PO SCH (21:23)
[2018-10-06] MEDS: ZOLPIDEM TARTRATE 10 MG TABLET PO PRN (21:23)
[2018-10-07] MEDS: LORazepam 2 MG TABLET PO PRN ×4 (00:46→16:38)
[2018-10-07 01:02] VITALS: BP 128/83
[2018-10-07] MEDS: QUEtiapine FUMARATE 200 MG TABLET PO SCH ×3 (07:58→16:07)
[2018-10-07] MEDS: LITHIUM CARBONATE 600 MG CAPSULE PO SCH ×2 (07:58→16:07)
[2018-10-07] MEDS: DIVALPROEX SODIUM 500 MG DR TABLET PO SCH ×2 (07:58→20:20)
[2018-10-07] MEDS: RIFAXIMIN 550 MG TABLET PO SCH ×2 (07:58→16:07)
[2018-10-07 08:04] VITALS: BP 127/64
[2018-10-07 08:13] LABS: LITHIUM 0.73 mmol/L (0.60-1.20)
[2018-10-07] MEDS: ChlorproMAZINE HCL 50 MG TABLET PO PRN ×2 (12:37→16:38)
[2018-10-07 16:03] VITALS: BP 107/67
[2018-10-07] MEDS: ZOLPIDEM TARTRATE 10 MG TABLET PO PRN (20:20)
[2018-10-07] MEDS: TraZODone HCL 100 MG TABLET PO SCH (20:20)
[2018-10-08 00:25] VITALS: BP 126/85
[2018-10-08 08:00] VITALS: BP 116/65
[2018-10-08] MEDS: LITHIUM CARBONATE 600 MG CAPSULE PO SCH ×2 (08:12→16:57)
[2018-10-08] MEDS: RIFAXIMIN 550 MG TABLET PO SCH ×2 (08:12→16:57)
[2018-10-08] MEDS: DIVALPROEX SODIUM 500 MG DR TABLET PO SCH ×2 (08:13→20:41)
[2018-10-08] MEDS: QUEtiapine FUMARATE 200 MG TABLET PO SCH ×3 (08:13→16:57)
[2018-10-08] MEDS: LORazepam 2 MG TABLET PO PRN ×3 (08:43→20:41)
[2018-10-08] MEDS: ChlorproMAZINE HCL 50 MG TABLET PO PRN (13:43)
[2018-10-08 16:31] VITALS: BP 127/71
[2018-10-08] MEDS: TraZODone HCL 100 MG TABLET PO SCH (20:41)
[2018-10-08] MEDS: ZOLPIDEM TARTRATE 10 MG TABLET PO PRN (20:41)
[2018-10-09 00:37] VITALS: BP 113/70
[2018-10-09] MEDS: LORazepam 2 MG TABLET PO PRN ×4 (01:07→20:50)
[2018-10-09 08:07] VITALS: BP 127/73
[2018-10-09] MEDS: LITHIUM CARBONATE 600 MG CAPSULE PO SCH ×2 (08:08→16:06)
[2018-10-09] MEDS: DIVALPROEX SODIUM 500 MG DR TABLET PO SCH ×2 (08:08→20:49)
[2018-10-09] MEDS: QUEtiapine FUMARATE 200 MG TABLET PO SCH ×4 (08:08→16:06)
[2018-10-09] MEDS: RIFAXIMIN 550 MG TABLET PO SCH ×2 (08:09→16:06)
[2018-10-09] MEDS: ChlorproMAZINE HCL 50 MG TABLET PO PRN ×2 (13:09→19:09)
[2018-10-09 16:00] VITALS: BP 112/69
[2018-10-09] MEDS: TraZODone HCL 100 MG TABLET PO SCH (20:49)
[2018-10-09] MEDS: ZOLPIDEM TARTRATE 10 MG TABLET PO PRN (20:50)
[2018-10-10 00:50] VITALS: BP 103/66
[2018-10-10] MEDS: LORazepam 2 MG TABLET PO PRN ×4 (00:59→20:57)
[2018-10-10 08:18] VITALS: BP 126/86
[2018-10-10] MEDS: DIVALPROEX SODIUM 500 MG DR TABLET PO SCH ×2 (09:07→20:57)
[2018-10-10] MEDS: QUEtiapine FUMARATE 200 MG TABLET PO SCH ×4 (09:07→16:36)
[2018-10-10] MEDS: RIFAXIMIN 550 MG TABLET PO SCH ×2 (09:07→16:36)
[2018-10-10] MEDS: LITHIUM CARBONATE 600 MG CAPSULE PO SCH ×2 (09:07→16:36)
[2018-10-10 16:29] VITALS: BP 122/74
[2018-10-10] MEDS: ChlorproMAZINE HCL 50 MG TABLET PO PRN (16:36)
[2018-10-10] MEDS: TraZODone HCL 100 MG TABLET PO SCH (20:57)
[2018-10-10] MEDS: ZOLPIDEM TARTRATE 10 MG TABLET PO PRN (20:57)
[2018-10-11 00:12] VITALS: BP 105/69
[2018-10-11] MEDS: LORazepam 2 MG TABLET PO PRN ×2 (01:56→13:06)
[2018-10-11 08:03] VITALS: BP 121/71
[2018-10-11] MEDS: LITHIUM CARBONATE 600 MG CAPSULE PO SCH ×2 (08:26→16:09)
[2018-10-11] MEDS: RIFAXIMIN 550 MG TABLET PO SCH ×2 (08:26→16:09)
[2018-10-11] MEDS: QUEtiapine FUMARATE 200 MG TABLET PO SCH ×3 (08:26→16:09)
[2018-10-11] MEDS: DIVALPROEX SODIUM 500 MG DR TABLET PO SCH ×2 (08:26→20:09)
[2018-10-11] MEDS ORDERED: TUBERCULIN, PURIFIED PROTEIN DERIVATIVE 5 TU/0.1 ML SYRINGE ID ONE (13:15)
[2018-10-11 16:00] VITALS: BP 116/69
[2018-10-11] MEDS: ZOLPIDEM TARTRATE 10 MG TABLET PO PRN (20:09)
[2018-10-11] MEDS: TraZODone HCL 100 MG TABLET PO SCH (20:09)
[2018-10-12] MEDS: LORazepam 2 MG TABLET PO PRN ×3 (00:18→23:58)
[2018-10-12 00:20] VITALS: BP 122/80
[2018-10-12 08:02] VITALS: BP 152/79
[2018-10-12] MEDS: RIFAXIMIN 550 MG TABLET PO SCH ×2 (08:12→16:31)
[2018-10-12] MEDS: QUEtiapine FUMARATE 200 MG TABLET PO SCH ×3 (08:12→16:31)
[2018-10-12] MEDS: LITHIUM CARBONATE 600 MG CAPSULE PO SCH ×2 (08:12→16:31)
[2018-10-12] MEDS: DIVALPROEX SODIUM 500 MG DR TABLET PO SCH ×2 (08:13→20:12)
[2018-10-12 16:00] VITALS: BP 116/65
[2018-10-12] MEDS: ChlorproMAZINE HCL 50 MG TABLET PO PRN (16:31)
[2018-10-12] MEDS: TraZODone HCL 100 MG TABLET PO SCH (20:13)
[2018-10-12] MEDS: ZOLPIDEM TARTRATE 10 MG TABLET PO PRN (20:13)
[2018-10-13 01:03] VITALS: BP 133/68
[2018-10-13 08:02] VITALS: BP 112/80
[2018-10-13] MEDS: LITHIUM CARBONATE 600 MG CAPSULE PO SCH ×2 (08:08→16:51)
[2018-10-13] MEDS: DIVALPROEX SODIUM 500 MG DR TABLET PO SCH ×2 (08:08→20:52)
[2018-10-13] MEDS: QUEtiapine FUMARATE 200 MG TABLET PO SCH ×3 (08:08→16:51)
[2018-10-13] MEDS: RIFAXIMIN 550 MG TABLET PO SCH ×2 (08:09→16:51)
[2018-10-13 16:10] VITALS: BP 114/82
[2018-10-13] MEDS: ChlorproMAZINE HCL 50 MG TABLET PO PRN (16:51)
[2018-10-13] MEDS: LORazepam 2 MG TABLET PO PRN ×2 (16:51→20:52)
[2018-10-13] MEDS: ZOLPIDEM TARTRATE 10 MG TABLET PO PRN (20:52)
[2018-10-13] MEDS: TraZODone HCL 100 MG TABLET PO SCH (20:52)
[2018-10-14 00:09] VITALS: BP 114/76
[2018-10-14] MEDS: ChlorproMAZINE HCL 50 MG TABLET PO PRN ×2 (00:17→16:38)
[2018-10-14] MEDS: LORazepam 2 MG TABLET PO PRN ×4 (01:12→16:38)
[2018-10-14 08:09] VITALS: BP 116/75
[2018-10-14] MEDS: RIFAXIMIN 550 MG TABLET PO SCH ×2 (08:31→16:38)
[2018-10-14] MEDS: DIVALPROEX SODIUM 500 MG DR TABLET PO SCH ×2 (08:31→20:48)
[2018-10-14] MEDS: QUEtiapine FUMARATE 200 MG TABLET PO SCH ×3 (08:31→16:38)
[2018-10-14] MEDS: LITHIUM CARBONATE 600 MG CAPSULE PO SCH ×2 (08:35→16:38)
[2018-10-14 16:00] VITALS: BP 127/76
[2018-10-14] MEDS: TraZODone HCL 100 MG TABLET PO SCH (20:48)
[2018-10-14] MEDS: HALOPERIDOL LACTATE 5 MG/ML VIAL IM PRN (20:49)
[2018-10-15 00:34] VITALS: BP 118/73
[2018-10-15 08:00] VITALS: BP 115/66
[2018-10-15] MEDS: DIVALPROEX SODIUM 500 MG DR TABLET PO SCH ×2 (08:26→20:54)
[2018-10-15] MEDS: QUEtiapine FUMARATE 200 MG TABLET PO SCH ×3 (08:26→16:42)
[2018-10-15] MEDS: LITHIUM CARBONATE 600 MG CAPSULE PO SCH ×2 (08:27→16:42)
[2018-10-15] MEDS: RIFAXIMIN 550 MG TABLET PO SCH ×2 (08:27→16:42)
[2018-10-15 16:25] VITALS: BP 142/82
[2018-10-15] MEDS: LORazepam 2 MG TABLET PO PRN ×2 (16:42→20:54)
[2018-10-15] MEDS: ChlorproMAZINE HCL 50 MG TABLET PO PRN (16:45)
[2018-10-15] MEDS: ZOLPIDEM TARTRATE 10 MG TABLET PO PRN (20:54)
[2018-10-15] MEDS: TraZODone HCL 100 MG TABLET PO SCH (20:54)
[2018-10-16 00:25] VITALS: BP 127/70
[2018-10-16] MEDS ORDERED: LORazepam 2 MG/ML VIAL ONE (00:52)
[2018-10-16] MEDS ORDERED: DiphenhydrAMINE HCL 50 MG/ML VIAL ONE (00:52)
[2018-10-16] MEDS ORDERED: LORazepam 2 MG/ML VIAL IM ONE (01:00)
[2018-10-16] MEDS ORDERED: DiphenhydrAMINE HCL 50 MG/ML VIAL IM ONE (01:00)
[2018-10-16] MEDS: DIVALPROEX SODIUM 500 MG DR TABLET PO SCH ×2 (08:05→20:08)
[2018-10-16] MEDS: LITHIUM CARBONATE 600 MG CAPSULE PO SCH ×2 (08:05→16:41)
[2018-10-16] MEDS: QUEtiapine FUMARATE 200 MG TABLET PO SCH ×3 (08:06→16:41)
[2018-10-16] MEDS: RIFAXIMIN 550 MG TABLET PO SCH ×2 (08:06→16:41)
[2018-10-16 08:35] VITALS: BP 122/66
[2018-10-16] MEDS: LORazepam 2 MG TABLET PO PRN ×2 (11:14→16:42)
[2018-10-16 16:03] VITALS: BP 115/67
[2018-10-16] MEDS: ChlorproMAZINE HCL 50 MG TABLET PO PRN (16:42)
[2018-10-16] MEDS: ZOLPIDEM TARTRATE 10 MG TABLET PO PRN (20:08)
[2018-10-16] MEDS: TraZODone HCL 100 MG TABLET PO SCH (20:08)
[2018-10-17] MEDS: LORazepam 2 MG TABLET PO PRN ×3 (00:05→22:56)
[2018-10-17 00:06] VITALS: BP 118/78
[2018-10-17] MEDS: RIFAXIMIN 550 MG TABLET PO SCH ×2 (08:10→16:03)
[2018-10-17] MEDS: LITHIUM CARBONATE 600 MG CAPSULE PO SCH ×2 (08:10→16:02)
[2018-10-17] MEDS: DIVALPROEX SODIUM 500 MG DR TABLET PO SCH ×2 (08:10→20:28)
[2018-10-17] MEDS: QUEtiapine FUMARATE 200 MG TABLET PO SCH ×3 (08:10→16:03)
[2018-10-17 08:15] VITALS: BP 108/67
[2018-10-17 08:22] VITALS: BP 108/67
[2018-10-17] MEDS: ChlorproMAZINE HCL 50 MG TABLET PO PRN (16:02)
[2018-10-17 16:03] VITALS: BP 114/84
[2018-10-17] MEDS: ZOLPIDEM TARTRATE 10 MG TABLET PO PRN (20:28)
[2018-10-17] MEDS: TraZODone HCL 100 MG TABLET PO SCH (20:28)
[2018-10-18 06:10] VITALS: BP 122/78
[2018-10-18 08:06] VITALS: BP 111/58
[2018-10-18] MEDS: DIVALPROEX SODIUM 500 MG DR TABLET PO SCH ×2 (08:20→20:31)
[2018-10-18] MEDS: LITHIUM CARBONATE 600 MG CAPSULE PO SCH ×2 (08:20→16:33)
[2018-10-18] MEDS: RIFAXIMIN 550 MG TABLET PO SCH ×2 (08:20→16:33)
[2018-10-18] MEDS: QUEtiapine FUMARATE 200 MG TABLET PO SCH ×3 (08:20→16:33)
[2018-10-18] MEDS: LORazepam 2 MG TABLET PO PRN ×2 (13:33→20:32)
[2018-10-18 16:07] VITALS: BP 118/86
[2018-10-18] MEDS: TraZODone HCL 100 MG TABLET PO SCH (20:32)
[2018-10-18] MEDS: ZOLPIDEM TARTRATE 10 MG TABLET PO PRN (20:32)
[2018-10-19] MEDS: LORazepam 2 MG TABLET PO PRN ×4 (01:02→16:47)
[2018-10-19 05:17] VITALS: BP 112/76
[2018-10-19 08:20] VITALS: BP 126/70
[2018-10-19] MEDS: RIFAXIMIN 550 MG TABLET PO SCH ×2 (08:23→16:06)
[2018-10-19] MEDS: LITHIUM CARBONATE 600 MG CAPSULE PO SCH ×2 (08:23→16:06)
[2018-10-19] MEDS: QUEtiapine FUMARATE 200 MG TABLET PO SCH ×3 (08:23→16:06)
[2018-10-19] MEDS: DIVALPROEX SODIUM 500 MG DR TABLET PO SCH ×2 (08:23→20:24)
[2018-10-19] MEDS: ChlorproMAZINE HCL 50 MG TABLET PO PRN ×2 (11:38→16:47)
[2018-10-19 16:00] VITALS: BP 112/80
[2018-10-19] MEDS: TraZODone HCL 100 MG TABLET PO SCH (20:24)
[2018-10-19] MEDS: ZOLPIDEM TARTRATE 10 MG TABLET PO PRN (20:25)
[2018-10-20 02:40] VITALS: BP 111/81
[2018-10-20] MEDS: ChlorproMAZINE HCL 50 MG TABLET PO PRN ×2 (03:05→16:13)
[2018-10-20] MEDS: LORazepam 2 MG TABLET PO PRN ×3 (03:05→20:30)
[2018-10-20] MEDS: RIFAXIMIN 550 MG TABLET PO SCH ×2 (08:10→16:13)
[2018-10-20] MEDS: DIVALPROEX SODIUM 500 MG DR TABLET PO SCH ×2 (08:10→20:29)
[2018-10-20] MEDS: QUEtiapine FUMARATE 200 MG TABLET PO SCH ×3 (08:11→16:13)
[2018-10-20] MEDS: LITHIUM CARBONATE 600 MG CAPSULE PO SCH ×2 (08:11→16:13)
[2018-10-20 08:15] VITALS: BP 125/85
[2018-10-20 16:31] VITALS: BP 110/60
[2018-10-20] MEDS: TraZODone HCL 100 MG TABLET PO SCH (20:29)
[2018-10-20] MEDS: ZOLPIDEM TARTRATE 10 MG TABLET PO PRN (20:30)
[2018-10-21 00:04] VITALS: BP 111/71
[2018-10-21] MEDS: ChlorproMAZINE HCL 50 MG TABLET PO PRN ×2 (00:30→16:31)
[2018-10-21] MEDS: QUEtiapine FUMARATE 200 MG TABLET PO SCH ×3 (08:10→16:31)
[2018-10-21] MEDS: RIFAXIMIN 550 MG TABLET PO SCH ×2 (08:11→16:31)
[2018-10-21] MEDS: DIVALPROEX SODIUM 500 MG DR TABLET PO SCH ×2 (08:11→20:46)
[2018-10-21] MEDS: LITHIUM CARBONATE 600 MG CAPSULE PO SCH ×2 (08:11→16:31)
[2018-10-21 09:18] VITALS: BP 101/80
[2018-10-21] MEDS: LORazepam 2 MG TABLET PO PRN ×2 (16:31→20:46)
[2018-10-21 16:48] VITALS: BP 105/60
[2018-10-21] MEDS: ZOLPIDEM TARTRATE 10 MG TABLET PO PRN (20:46)
[2018-10-21] MEDS: TraZODone HCL 100 MG TABLET PO SCH (20:46)
[2018-10-22] MEDS: LORazepam 2 MG TABLET PO PRN ×3 (02:28→20:41)
[2018-10-22] MEDS: ChlorproMAZINE HCL 50 MG TABLET PO PRN ×3 (02:28→23:56)
[2018-10-22 06:48] VITALS: BP 114/72
[2018-10-22 09:03] VITALS: BP 105/64
[2018-10-22] MEDS: DIVALPROEX SODIUM 500 MG DR TABLET PO SCH ×2 (09:23→20:23)
[2018-10-22] MEDS: QUEtiapine FUMARATE 200 MG TABLET PO SCH ×3 (09:23→16:38)
[2018-10-22] MEDS: RIFAXIMIN 550 MG TABLET PO SCH ×2 (09:23→16:39)
[2018-10-22] MEDS: LITHIUM CARBONATE 600 MG CAPSULE PO SCH ×2 (09:23→16:39)
[2018-10-22 16:00] VITALS: BP 108/67
[2018-10-22] MEDS: TraZODone HCL 100 MG TABLET PO SCH (20:23)
[2018-10-22] MEDS: ZOLPIDEM TARTRATE 10 MG TABLET PO PRN (20:23)
[2018-10-23 00:45] VITALS: BP 117/76
[2018-10-23] MEDS: LORazepam 2 MG TABLET PO PRN ×4 (00:50→20:41)
[2018-10-23] MEDS: LITHIUM CARBONATE 600 MG CAPSULE PO SCH ×2 (08:00→16:39)
[2018-10-23] MEDS: DIVALPROEX SODIUM 500 MG DR TABLET PO SCH ×2 (08:00→20:41)
[2018-10-23] MEDS: QUEtiapine FUMARATE 200 MG TABLET PO SCH ×3 (08:00→16:39)
[2018-10-23] MEDS: RIFAXIMIN 550 MG TABLET PO SCH ×2 (08:00→16:40)
[2018-10-23 08:31] VITALS: BP 113/81
[2018-10-23] MEDS: ChlorproMAZINE HCL 50 MG TABLET PO PRN ×2 (14:25→20:41)
[2018-10-23 16:00] VITALS: BP 110/70
[2018-10-23] MEDS: TraZODone HCL 100 MG TABLET PO SCH (20:41)
[2018-10-24 00:45] VITALS: BP 109/64
[2018-10-24] MEDS: LORazepam 2 MG TABLET PO PRN ×3 (00:50→20:50)
[2018-10-24] MEDS: ChlorproMAZINE HCL 50 MG TABLET PO PRN ×2 (05:46→15:47)
[2018-10-24] MEDS: RIFAXIMIN 550 MG TABLET PO SCH ×2 (08:24→16:01)
[2018-10-24] MEDS: LITHIUM CARBONATE 600 MG CAPSULE PO SCH ×2 (08:24→16:01)
[2018-10-24] MEDS: DIVALPROEX SODIUM 500 MG DR TABLET PO SCH ×2 (08:24→20:49)
[2018-10-24] MEDS: QUEtiapine FUMARATE 200 MG TABLET PO SCH ×3 (08:24→16:01)
[2018-10-24 08:42] VITALS: BP 101/60
[2018-10-24 16:11] VITALS: BP 126/73
[2018-10-24] MEDS: TraZODone HCL 100 MG TABLET PO SCH (20:49)
[2018-10-24] MEDS: ZOLPIDEM TARTRATE 10 MG TABLET PO PRN (20:50)
[2018-10-25 00:48] VITALS: BP 112/76
[2018-10-25] MEDS: ChlorproMAZINE HCL 50 MG TABLET PO PRN ×2 (01:55→16:27)
[2018-10-25] MEDS: LORazepam 2 MG TABLET PO PRN ×4 (01:55→20:42)
[2018-10-25] MEDS: QUEtiapine FUMARATE 200 MG TABLET PO SCH ×3 (08:11→16:27)
[2018-10-25] MEDS: RIFAXIMIN 550 MG TABLET PO SCH ×2 (08:11→16:27)
[2018-10-25] MEDS: LITHIUM CARBONATE 600 MG CAPSULE PO SCH ×2 (08:11→16:27)
[2018-10-25] MEDS: DIVALPROEX SODIUM 500 MG DR TABLET PO SCH ×2 (08:11→20:42)
[2018-10-25 08:17] VITALS: BP 92/60
[2018-10-25 16:00] VITALS: BP 132/70
[2018-10-25] MEDS: TraZODone HCL 100 MG TABLET PO SCH (20:41)
[2018-10-26 00:49] VITALS: BP 126/72
[2018-10-26] MEDS: LORazepam 2 MG TABLET PO PRN ×3 (02:47→21:10)
[2018-10-26] MEDS: LITHIUM CARBONATE 600 MG CAPSULE PO SCH ×2 (09:19→16:59)
[2018-10-26] MEDS: QUEtiapine FUMARATE 200 MG TABLET PO SCH ×3 (09:19→16:58)
[2018-10-26] MEDS: DIVALPROEX SODIUM 500 MG DR TABLET PO SCH ×2 (09:19→21:10)
[2018-10-26] MEDS: RIFAXIMIN 550 MG TABLET PO SCH ×2 (09:19→16:58)
[2018-10-26 09:25] VITALS: BP 140/89
[2018-10-26 16:47] VITALS: BP 120/92
[2018-10-26] MEDS: ChlorproMAZINE HCL 50 MG TABLET PO PRN (16:59)
[2018-10-26] MEDS: ZOLPIDEM TARTRATE 10 MG TABLET PO PRN (21:10)
[2018-10-26] MEDS: TraZODone HCL 100 MG TABLET PO SCH (21:10)
[2018-10-27] MEDS: LORazepam 2 MG TABLET PO PRN ×4 (01:14→22:05)
[2018-10-27 04:35] VITALS: BP 117/78
[2018-10-27] MEDS: LITHIUM CARBONATE 600 MG CAPSULE PO SCH ×2 (08:03→17:00)
[2018-10-27] MEDS: DIVALPROEX SODIUM 500 MG DR TABLET PO SCH ×2 (08:03→22:05)
[2018-10-27] MEDS: QUEtiapine FUMARATE 200 MG TABLET PO SCH ×3 (08:03→17:00)
[2018-10-27] MEDS: RIFAXIMIN 550 MG TABLET PO SCH ×2 (08:03→17:00)
[2018-10-27 09:35] VITALS: BP 109/64
[2018-10-27] MEDS: ChlorproMAZINE HCL 50 MG TABLET PO PRN ×2 (10:35→17:00)
[2018-10-27 16:00] VITALS: BP 118/70
[2018-10-27] MEDS: TraZODone HCL 100 MG TABLET PO SCH (22:05)
[2018-10-28] MEDS: ChlorproMAZINE HCL 50 MG TABLET PO PRN ×2 (00:17→16:51)
[2018-10-28 00:18] VITALS: BP 115/78
[2018-10-28] MEDS: LORazepam 2 MG TABLET PO PRN ×2 (02:41→16:50)
[2018-10-28] MEDS: QUEtiapine FUMARATE 200 MG TABLET PO SCH ×3 (08:01→16:50)
[2018-10-28] MEDS: RIFAXIMIN 550 MG TABLET PO SCH ×2 (08:01→16:50)
[2018-10-28] MEDS: LITHIUM CARBONATE 600 MG CAPSULE PO SCH ×2 (08:01→16:50)
[2018-10-28] MEDS: DIVALPROEX SODIUM 500 MG DR TABLET PO SCH ×2 (08:01→20:22)
[2018-10-28 09:19] VITALS: BP 107/64
[2018-10-28 16:17] VITALS: BP 138/86
[2018-10-28] MEDS: ZOLPIDEM TARTRATE 10 MG TABLET PO PRN (20:22)
[2018-10-28] MEDS: TraZODone HCL 100 MG TABLET PO SCH (20:22)
[2018-10-29] MEDS: ChlorproMAZINE HCL 50 MG TABLET PO PRN ×2 (01:25→16:27)
[2018-10-29] MEDS: LORazepam 2 MG TABLET PO PRN ×4 (01:25→20:38)
[2018-10-29 01:26] VITALS: BP 128/75
[2018-10-29] MEDS: RIFAXIMIN 550 MG TABLET PO SCH ×2 (08:12→16:27)
[2018-10-29] MEDS: LITHIUM CARBONATE 600 MG CAPSULE PO SCH ×2 (08:12→16:27)
[2018-10-29] MEDS: QUEtiapine FUMARATE 200 MG TABLET PO SCH ×3 (08:12→16:27)
[2018-10-29] MEDS: DIVALPROEX SODIUM 500 MG DR TABLET PO SCH ×2 (08:12→20:38)
[2018-10-29 08:51] VITALS: BP 120/60
[2018-10-29 16:55] VITALS: BP 118/76
[2018-10-29] MEDS: TraZODone HCL 100 MG TABLET PO SCH (20:38)
[2018-10-29] MEDS: ZOLPIDEM TARTRATE 10 MG TABLET PO PRN (20:38)
[2018-10-30 00:40] VITALS: BP 117/74
[2018-10-30] MEDS: ChlorproMAZINE HCL 50 MG TABLET PO PRN ×3 (00:42→23:56)
[2018-10-30] MEDS: LORazepam 2 MG TABLET PO PRN ×4 (05:55→23:56)
[2018-10-30 08:14] VITALS: BP 131/79
[2018-10-30] MEDS: LITHIUM CARBONATE 600 MG CAPSULE PO SCH ×2 (08:17→17:06)
[2018-10-30] MEDS: QUEtiapine FUMARATE 200 MG TABLET PO SCH ×3 (08:17→17:06)
[2018-10-30] MEDS: DIVALPROEX SODIUM 500 MG DR TABLET PO SCH ×2 (08:17→21:27)
[2018-10-30] MEDS: RIFAXIMIN 550 MG TABLET PO SCH ×2 (08:17→17:06)
[2018-10-30 17:27] VITALS: BP 139/91
[2018-10-30] MEDS: TraZODone HCL 100 MG TABLET PO SCH (21:26)
[2018-10-31 00:01] VITALS: BP 106/69
[2018-10-31] MEDS: ChlorproMAZINE HCL 50 MG TABLET PO PRN ×2 (06:20→16:41)
[2018-10-31] MEDS: LORazepam 2 MG TABLET PO PRN ×3 (06:20→16:41)
[2018-10-31 08:35] VITALS: BP 127/77
[2018-10-31] MEDS: LITHIUM CARBONATE 600 MG CAPSULE PO SCH ×2 (08:51→16:41)
[2018-10-31] MEDS: DIVALPROEX SODIUM 500 MG DR TABLET PO SCH ×2 (08:51→21:13)
[2018-10-31] MEDS: QUEtiapine FUMARATE 200 MG TABLET PO SCH ×3 (08:51→17:55)
[2018-10-31] MEDS: RIFAXIMIN 550 MG TABLET PO SCH ×2 (08:51→16:41)
[2018-10-31 16:29] VITALS: BP 129/84
[2018-10-31] MEDS: ZOLPIDEM TARTRATE 10 MG TABLET PO PRN (21:13)
[2018-10-31] MEDS: TraZODone HCL 100 MG TABLET PO SCH (21:13)
[2018-11-01] MEDS: LORazepam 2 MG TABLET PO PRN ×3 (02:53→16:35)
[2018-11-01] MEDS: ChlorproMAZINE HCL 50 MG TABLET PO PRN ×2 (02:53→16:35)
[2018-11-01 02:56] VITALS: BP 130/69
[2018-11-01] MEDS: DIVALPROEX SODIUM 500 MG DR TABLET PO SCH ×2 (08:20→21:36)
[2018-11-01] MEDS: QUEtiapine FUMARATE 200 MG TABLET PO SCH ×3 (08:20→16:34)
[2018-11-01] MEDS: LITHIUM CARBONATE 600 MG CAPSULE PO SCH ×2 (08:20→16:34)
[2018-11-01] MEDS: RIFAXIMIN 550 MG TABLET PO SCH ×2 (08:20→16:34)
[2018-11-01 09:33] VITALS: BP 128/72
[2018-11-01 16:40] VITALS: BP 111/81
[2018-11-01] MEDS: ZOLPIDEM TARTRATE 10 MG TABLET PO PRN (21:36)
[2018-11-01] MEDS: TraZODone HCL 100 MG TABLET PO SCH (21:36)
[2018-11-02 02:43] VITALS: BP 118/78
[2018-11-02] MEDS: LORazepam 2 MG TABLET PO PRN ×2 (06:13→16:12)
[2018-11-02 08:11] VITALS: BP 137/69
[2018-11-02] MEDS: DIVALPROEX SODIUM 500 MG DR TABLET PO SCH ×2 (08:19→20:16)
[2018-11-02] MEDS: LITHIUM CARBONATE 600 MG CAPSULE PO SCH ×2 (08:19→16:12)
[2018-11-02] MEDS: RIFAXIMIN 550 MG TABLET PO SCH ×2 (08:19→16:12)
[2018-11-02] MEDS: QUEtiapine FUMARATE 200 MG TABLET PO SCH ×3 (08:19→16:12)
[2018-11-02] MEDS: ChlorproMAZINE HCL 50 MG TABLET PO PRN (16:12)
[2018-11-02 16:16] VITALS: BP 126/78
[2018-11-02] MEDS: TraZODone HCL 100 MG TABLET PO SCH (20:16)
[2018-11-03 07:03] VITALS: BP 118/82
[2018-11-03] MEDS: DIVALPROEX SODIUM 500 MG DR TABLET PO SCH ×2 (08:15→20:59)
[2018-11-03] MEDS: RIFAXIMIN 550 MG TABLET PO SCH ×2 (08:15→16:34)
[2018-11-03] MEDS: QUEtiapine FUMARATE 200 MG TABLET PO SCH ×3 (08:15→16:34)
[2018-11-03] MEDS: LITHIUM CARBONATE 600 MG CAPSULE PO SCH ×2 (08:15→16:34)
[2018-11-03 08:26] VITALS: BP 117/70
[2018-11-03 16:00] VITALS: BP 129/80
[2018-11-03] MEDS: ChlorproMAZINE HCL 50 MG TABLET PO PRN (16:34)
[2018-11-03] MEDS: LORazepam 2 MG TABLET PO PRN (16:34)
[2018-11-03] MEDS: TraZODone HCL 100 MG TABLET PO SCH (20:59)
[2018-11-04 01:04] VITALS: BP 119/79
[2018-11-04] MEDS: ZOLPIDEM TARTRATE 10 MG TABLET PO PRN (01:06)
[2018-11-04] MEDS: LORazepam 2 MG TABLET PO PRN ×4 (01:06→21:13)
[2018-11-04] MEDS: RIFAXIMIN 550 MG TABLET PO SCH ×2 (08:00→16:06)
[2018-11-04] MEDS: DIVALPROEX SODIUM 500 MG DR TABLET PO SCH ×2 (08:00→21:13)
[2018-11-04] MEDS: QUEtiapine FUMARATE 200 MG TABLET PO SCH ×3 (08:00→16:06)
[2018-11-04] MEDS: LITHIUM CARBONATE 600 MG CAPSULE PO SCH ×2 (08:00→16:06)
[2018-11-04 09:19] VITALS: BP 134/87
[2018-11-04] MEDS: ChlorproMAZINE HCL 50 MG TABLET PO PRN (16:06)
[2018-11-04 17:02] VITALS: BP 122/71
[2018-11-04] MEDS: TraZODone HCL 100 MG TABLET PO SCH (21:13)
[2018-11-05 02:49] VITALS: BP 122/73
[2018-11-05] MEDS: LORazepam 2 MG TABLET PO PRN ×2 (04:59→16:24)
[2018-11-05] MEDS: QUEtiapine FUMARATE 200 MG TABLET PO SCH ×3 (08:02→16:58)
[2018-11-05] MEDS: DIVALPROEX SODIUM 500 MG DR TABLET PO SCH ×2 (08:02→20:06)
[2018-11-05] MEDS: LITHIUM CARBONATE 600 MG CAPSULE PO SCH ×2 (08:02→16:59)
[2018-11-05] MEDS: RIFAXIMIN 550 MG TABLET PO SCH ×2 (08:03→16:58)
[2018-11-05 08:31] VITALS: BP 138/89
[2018-11-05] MEDS: ChlorproMAZINE HCL 50 MG TABLET PO PRN ×2 (10:05→16:24)
[2018-11-05 16:00] VITALS: BP 109/75
[2018-11-05] MEDS: TraZODone HCL 100 MG TABLET PO SCH (20:06)
[2018-11-05] MEDS: ZOLPIDEM TARTRATE 10 MG TABLET PO PRN (20:58)
[2018-11-06] MEDS: LORazepam 2 MG TABLET PO PRN ×4 (00:03→22:47)
[2018-11-06] MEDS: ChlorproMAZINE HCL 50 MG TABLET PO PRN ×2 (02:35→17:10)
[2018-11-06 05:59] VITALS: BP 118/79
[2018-11-06] MEDS: RIFAXIMIN 550 MG TABLET PO SCH ×2 (08:04→17:10)
[2018-11-06] MEDS: DIVALPROEX SODIUM 500 MG DR TABLET PO SCH ×2 (08:04→20:34)
[2018-11-06] MEDS: LITHIUM CARBONATE 600 MG CAPSULE PO SCH ×2 (08:04→17:10)
[2018-11-06] MEDS: QUEtiapine FUMARATE 200 MG TABLET PO SCH ×3 (08:04→17:10)
[2018-11-06 08:20] VITALS: BP 120/84
[2018-11-06 16:17] VITALS: BP 139/88
[2018-11-06] MEDS: ZOLPIDEM TARTRATE 10 MG TABLET PO PRN (20:34)
[2018-11-06] MEDS: TraZODone HCL 100 MG TABLET PO SCH (20:34)
[2018-11-07 01:40] VITALS: BP 136/82
[2018-11-07] MEDS: ChlorproMAZINE HCL 50 MG TABLET PO PRN ×3 (01:44→16:26)
[2018-11-07] MEDS: LORazepam 2 MG TABLET PO PRN ×3 (03:26→16:26)
[2018-11-07] MEDS: RIFAXIMIN 550 MG TABLET PO SCH ×2 (08:03→16:26)
[2018-11-07] MEDS: DIVALPROEX SODIUM 500 MG DR TABLET PO SCH ×2 (08:04→21:09)
[2018-11-07] MEDS: QUEtiapine FUMARATE 200 MG TABLET PO SCH ×3 (08:04→16:26)
[2018-11-07] MEDS: LITHIUM CARBONATE 600 MG CAPSULE PO SCH ×2 (08:05→16:26)
[2018-11-07 08:22] VITALS: BP 138/68
[2018-11-07 14:28] VITALS: BP 126/78
[2018-11-07 16:27] VITALS: BP 126/78
[2018-11-07] MEDS: TraZODone HCL 100 MG TABLET PO SCH (21:09)
[2018-11-08 00:01] VITALS: BP 132/87
[2018-11-08] MEDS: ZOLPIDEM TARTRATE 10 MG TABLET PO PRN (00:09)
[2018-11-08] MEDS: LORazepam 2 MG TABLET PO PRN ×4 (05:32→21:32)
[2018-11-08 08:00] VITALS: BP 129/87
[2018-11-08] MEDS: RIFAXIMIN 550 MG TABLET PO SCH ×2 (08:30→16:21)
[2018-11-08] MEDS: LITHIUM CARBONATE 600 MG CAPSULE PO SCH ×2 (08:30→16:21)
[2018-11-08] MEDS: QUEtiapine FUMARATE 200 MG TABLET PO SCH ×3 (08:31→16:21)
[2018-11-08] MEDS: DIVALPROEX SODIUM 500 MG DR TABLET PO SCH ×2 (08:31→21:32)
[2018-11-08 16:00] VITALS: BP 118/73
[2018-11-08] MEDS: ChlorproMAZINE HCL 50 MG TABLET PO PRN (16:22)
[2018-11-08] MEDS: TraZODone HCL 100 MG TABLET PO SCH (21:31)
[2018-11-09 00:05] VITALS: BP 134/95
[2018-11-09 08:32] VITALS: BP 123/61
[2018-11-09] MEDS: LITHIUM CARBONATE 600 MG CAPSULE PO SCH ×2 (08:51→16:36)
[2018-11-09] MEDS: QUEtiapine FUMARATE 200 MG TABLET PO SCH ×3 (08:51→16:36)
[2018-11-09] MEDS: DIVALPROEX SODIUM 500 MG DR TABLET PO SCH ×2 (08:51→20:25)
[2018-11-09] MEDS: RIFAXIMIN 550 MG TABLET PO SCH ×2 (08:52→16:36)
[2018-11-09] MEDS: LORazepam 2 MG TABLET PO PRN ×2 (10:00→16:36)
[2018-11-09] MEDS: ChlorproMAZINE HCL 50 MG TABLET PO PRN (10:00)
[2018-11-09 16:56] VITALS: BP 109/77
[2018-11-09] MEDS: TraZODone HCL 100 MG TABLET PO SCH (20:25)
[2018-11-10] MEDS: ZOLPIDEM TARTRATE 10 MG TABLET PO PRN ×2 (00:15→21:27)
[2018-11-10 01:07] VITALS: BP 114/78
[2018-11-10] MEDS: DIVALPROEX SODIUM 500 MG DR TABLET PO SCH ×2 (08:57→21:27)
[2018-11-10] MEDS: QUEtiapine FUMARATE 200 MG TABLET PO SCH ×3 (08:57→17:26)
[2018-11-10] MEDS: RIFAXIMIN 550 MG TABLET PO SCH ×2 (08:57→17:26)
[2018-11-10] MEDS: LITHIUM CARBONATE 600 MG CAPSULE PO SCH ×2 (08:57→17:26)
[2018-11-10] MEDS: LORazepam 2 MG TABLET PO PRN ×3 (08:58→21:27)
[2018-11-10 10:39] VITALS: BP 141/96
[2018-11-10 16:00] VITALS: BP 133/85
[2018-11-10] MEDS: ChlorproMAZINE HCL 50 MG TABLET PO PRN (17:27)
[2018-11-10] MEDS: TraZODone HCL 100 MG TABLET PO SCH (21:27)
[2018-11-11] MEDS: ChlorproMAZINE HCL 50 MG TABLET PO PRN ×3 (02:09→22:42)
[2018-11-11 06:21] VITALS: BP 126/82
[2018-11-11] MEDS: RIFAXIMIN 550 MG TABLET PO SCH ×2 (08:15→16:18)
[2018-11-11] MEDS: DIVALPROEX SODIUM 500 MG DR TABLET PO SCH ×2 (08:16→22:17)
[2018-11-11] MEDS: LITHIUM CARBONATE 600 MG CAPSULE PO SCH ×2 (08:16→16:18)
[2018-11-11] MEDS: QUEtiapine FUMARATE 200 MG TABLET PO SCH ×3 (08:16→16:18)
[2018-11-11] MEDS: LORazepam 2 MG TABLET PO PRN ×3 (08:16→22:42)
[2018-11-11 08:23] VITALS: BP 126/73
[2018-11-11 16:00] VITALS: BP 112/73
[2018-11-11] MEDS: TraZODone HCL 100 MG TABLET PO SCH (22:18)
[2018-11-11] MEDS: ZOLPIDEM TARTRATE 10 MG TABLET PO PRN (22:42)
[2018-11-12 02:08] VITALS: BP 129/82
[2018-11-12] MEDS: LORazepam 2 MG TABLET PO PRN ×3 (02:57→16:09)
[2018-11-12] MEDS: RIFAXIMIN 550 MG TABLET PO SCH ×2 (08:15→16:09)
[2018-11-12] MEDS: DIVALPROEX SODIUM 500 MG DR TABLET PO SCH ×2 (08:15→22:13)
[2018-11-12] MEDS: LITHIUM CARBONATE 600 MG CAPSULE PO SCH ×2 (08:15→16:09)
[2018-11-12] MEDS: QUEtiapine FUMARATE 200 MG TABLET PO SCH ×3 (08:15→16:09)
[2018-11-12 08:37] VITALS: BP 112/60
[2018-11-12] MEDS: ChlorproMAZINE HCL 50 MG TABLET PO PRN ×2 (09:33→16:09)
[2018-11-12 16:00] VITALS: BP 131/76
[2018-11-12] MEDS: TraZODone HCL 100 MG TABLET PO SCH (22:13)
[2018-11-13] MEDS: ZOLPIDEM TARTRATE 10 MG TABLET PO PRN (00:33)
[2018-11-13] MEDS: ChlorproMAZINE HCL 50 MG TABLET PO PRN ×3 (00:33→16:09)
[2018-11-13] MEDS: LORazepam 2 MG TABLET PO PRN ×4 (00:33→16:09)
[2018-11-13 00:34] VITALS: BP 137/73
[2018-11-13] MEDS: QUEtiapine FUMARATE 200 MG TABLET PO SCH ×3 (08:55→16:09)
[2018-11-13] MEDS: DIVALPROEX SODIUM 500 MG DR TABLET PO SCH ×2 (08:55→20:33)
[2018-11-13] MEDS: LITHIUM CARBONATE 600 MG CAPSULE PO SCH ×2 (08:55→16:09)
[2018-11-13] MEDS: RIFAXIMIN 550 MG TABLET PO SCH ×2 (08:56→16:09)
[2018-11-13 09:34] VITALS: BP 117/59
[2018-11-13 16:00] VITALS: BP 110/71
[2018-11-13] MEDS: TraZODone HCL 100 MG TABLET PO SCH (20:34)
[2018-11-14] MEDS: ZOLPIDEM TARTRATE 10 MG TABLET PO PRN (02:28)
[2018-11-14 02:29] VITALS: BP 108/68
[2018-11-14] MEDS: LORazepam 2 MG TABLET PO PRN ×3 (06:54→16:36)
[2018-11-14] MEDS: DIVALPROEX SODIUM 500 MG DR TABLET PO SCH ×2 (08:04→21:42)
[2018-11-14] MEDS: LITHIUM CARBONATE 600 MG CAPSULE PO SCH ×2 (08:04→16:37)
[2018-11-14] MEDS: RIFAXIMIN 550 MG TABLET PO SCH ×2 (08:04→16:36)
[2018-11-14] MEDS: QUEtiapine FUMARATE 200 MG TABLET PO SCH ×3 (08:04→17:13)
[2018-11-14 08:12] VITALS: BP 106/61
[2018-11-14 16:00] VITALS: BP 108/65
[2018-11-14] MEDS: TraZODone HCL 100 MG TABLET PO SCH (21:42)
[2018-11-15 01:30] VITALS: BP 132/74
[2018-11-15] MEDS: DIVALPROEX SODIUM 500 MG DR TABLET PO SCH ×2 (09:07→20:20)
[2018-11-15] MEDS: LITHIUM CARBONATE 600 MG CAPSULE PO SCH ×2 (09:07→16:08)
[2018-11-15] MEDS: QUEtiapine FUMARATE 200 MG TABLET PO SCH ×3 (09:08→16:08)
[2018-11-15] MEDS: RIFAXIMIN 550 MG TABLET PO SCH ×2 (09:08→16:08)
[2018-11-15] MEDS: LORazepam 2 MG TABLET PO PRN ×4 (09:09→21:21)
[2018-11-15 09:12] VITALS: BP 117/61
[2018-11-15 16:00] VITALS: BP 138/83
[2018-11-15] MEDS: ChlorproMAZINE HCL 50 MG TABLET PO PRN (16:08)
[2018-11-15] MEDS: TraZODone HCL 100 MG TABLET PO SCH (20:21)
[2018-11-15 23:20] VITALS: BP 132/95
[2018-11-15 23:35] VITALS: BP 142/100
[2018-11-16 00:35] VITALS: BP 136/87
[2018-11-16 02:20] VITALS: BP 137/83
[2018-11-16] MEDS: ChlorproMAZINE HCL 50 MG TABLET PO PRN ×3 (02:30→16:40)
[2018-11-16 03:20] VITALS: BP 132/95
[2018-11-16] MEDS: LORazepam 2 MG TABLET PO PRN ×4 (06:30→22:28)
[2018-11-16 08:28] VITALS: BP 132/95
[2018-11-16] MEDS: DIVALPROEX SODIUM 500 MG DR TABLET PO SCH ×2 (08:39→22:14)
[2018-11-16] MEDS: LITHIUM CARBONATE 600 MG CAPSULE PO SCH ×2 (08:39→16:41)
[2018-11-16] MEDS: RIFAXIMIN 550 MG TABLET PO SCH ×2 (08:39→16:41)
[2018-11-16] MEDS: QUEtiapine FUMARATE 200 MG TABLET PO SCH ×3 (08:39→16:40)
[2018-11-16 08:45] VITALS: BP 134/89
[2018-11-16 16:00] VITALS: BP 140/87
[2018-11-16] MEDS: TraZODone HCL 100 MG TABLET PO SCH (22:14)
[2018-11-17 01:27] VITALS: BP 134/93
[2018-11-17] MEDS: ChlorproMAZINE HCL 50 MG TABLET PO PRN ×3 (02:28→16:55)
[2018-11-17] MEDS: DIVALPROEX SODIUM 500 MG DR TABLET PO SCH ×2 (08:24→21:50)
[2018-11-17] MEDS: QUEtiapine FUMARATE 200 MG TABLET PO SCH ×3 (08:24→16:18)
[2018-11-17] MEDS: RIFAXIMIN 550 MG TABLET PO SCH ×2 (08:24→16:18)
[2018-11-17] MEDS: LORazepam 2 MG TABLET PO PRN ×3 (08:24→16:40)
[2018-11-17] MEDS: LITHIUM CARBONATE 600 MG CAPSULE PO SCH ×2 (08:24→16:18)
[2018-11-17 16:38] VITALS: BP 139/64
[2018-11-17] MEDS: TraZODone HCL 100 MG TABLET PO SCH (21:50)
[2018-11-18 00:47] VITALS: BP 126/82
[2018-11-18] MEDS: ChlorproMAZINE HCL 50 MG TABLET PO PRN ×2 (01:46→12:45)
[2018-11-18] MEDS: LORazepam 2 MG TABLET PO PRN ×2 (06:42→17:22)
[2018-11-18 08:11] VITALS: BP 118/78
[2018-11-18] MEDS: QUEtiapine FUMARATE 200 MG TABLET PO SCH ×3 (09:47→17:22)
[2018-11-18] MEDS: RIFAXIMIN 550 MG TABLET PO SCH ×2 (09:47→17:22)
[2018-11-18] MEDS: DIVALPROEX SODIUM 500 MG DR TABLET PO SCH ×2 (09:47→22:00)
[2018-11-18] MEDS: LITHIUM CARBONATE 600 MG CAPSULE PO SCH ×2 (09:47→17:22)
[2018-11-18 16:00] VITALS: BP 122/67
[2018-11-18] MEDS: TraZODone HCL 100 MG TABLET PO SCH (22:00)
[2018-11-19] MEDS: ChlorproMAZINE HCL 50 MG TABLET PO PRN (04:37)
[2018-11-19] MEDS: LORazepam 2 MG TABLET PO PRN ×2 (04:37→16:55)
[2018-11-19 04:38] VITALS: BP 140/74
[2018-11-19 08:01] VITALS: BP 110/81
[2018-11-19] MEDS: LITHIUM CARBONATE 600 MG CAPSULE PO SCH ×2 (08:11→17:33)
[2018-11-19] MEDS: QUEtiapine FUMARATE 200 MG TABLET PO SCH ×3 (08:11→17:33)
[2018-11-19] MEDS: DIVALPROEX SODIUM 500 MG DR TABLET PO SCH ×2 (08:12→20:50)
[2018-11-19] MEDS: RIFAXIMIN 550 MG TABLET PO SCH ×2 (08:12→17:33)
[2018-11-19 16:00] VITALS: BP 136/86
[2018-11-19] MEDS: TraZODone HCL 100 MG TABLET PO SCH (20:50)
[2018-11-20 01:30] VITALS: BP 158/70
[2018-11-20] MEDS: ChlorproMAZINE HCL 50 MG TABLET PO PRN ×2 (04:15→09:32)
[2018-11-20 08:36] VITALS: BP 120/66
[2018-11-20] MEDS: QUEtiapine FUMARATE 200 MG TABLET PO SCH ×3 (09:31→16:44)
[2018-11-20] MEDS: LITHIUM CARBONATE 600 MG CAPSULE PO SCH ×2 (09:32→16:44)
[2018-11-20] MEDS: RIFAXIMIN 550 MG TABLET PO SCH ×2 (09:32→16:44)
[2018-11-20] MEDS: DIVALPROEX SODIUM 500 MG DR TABLET PO SCH ×2 (09:32→21:40)
[2018-11-20] MEDS: LORazepam 2 MG TABLET PO PRN ×3 (09:32→17:43)
[2018-11-20 16:44] VITALS: BP 120/63
[2018-11-20] MEDS: TraZODone HCL 100 MG TABLET PO SCH (21:40)
[2018-11-21 01:30] VITALS: BP 136/74
[2018-11-21] MEDS: ChlorproMAZINE HCL 50 MG TABLET PO PRN ×2 (01:39→08:26)
[2018-11-21 08:09] VITALS: BP 143/92
[2018-11-21] MEDS: QUEtiapine FUMARATE 200 MG TABLET PO SCH ×3 (08:25→16:29)
[2018-11-21] MEDS: RIFAXIMIN 550 MG TABLET PO SCH ×2 (08:25→16:29)
[2018-11-21] MEDS: LORazepam 2 MG TABLET PO PRN ×3 (08:26→16:29)
[2018-11-21] MEDS: DIVALPROEX SODIUM 500 MG DR TABLET PO SCH ×2 (08:26→21:27)
[2018-11-21] MEDS: LITHIUM CARBONATE 600 MG CAPSULE PO SCH ×2 (08:26→16:29)
[2018-11-21 08:59] VITALS: BP 143/92
[2018-11-21 14:36] VITALS: BP 138/82
[2018-11-21 16:00] VITALS: BP 116/74
[2018-11-21] MEDS: TraZODone HCL 100 MG TABLET PO SCH (21:27)
[2018-11-22 00:19] VITALS: BP 142/89
[2018-11-22] MEDS: ChlorproMAZINE HCL 50 MG TABLET PO PRN ×3 (01:24→16:10)
[2018-11-22 08:11] VITALS: BP 133/68
[2018-11-22] MEDS: DIVALPROEX SODIUM 500 MG DR TABLET PO SCH ×2 (09:04→20:28)
[2018-11-22] MEDS: RIFAXIMIN 550 MG TABLET PO SCH ×2 (09:04→16:09)
[2018-11-22] MEDS: LITHIUM CARBONATE 600 MG CAPSULE PO SCH ×2 (09:04→16:10)
[2018-11-22] MEDS: QUEtiapine FUMARATE 200 MG TABLET PO SCH ×3 (09:04→16:10)
[2018-11-22] MEDS: LORazepam 2 MG TABLET PO PRN ×2 (09:05→16:10)
[2018-11-22 16:00] VITALS: BP 130/67
[2018-11-22] MEDS: TraZODone HCL 100 MG TABLET PO SCH (20:28)
[2018-11-23 00:15] VITALS: BP 119/77
[2018-11-23 08:06] VITALS: BP 130/62
[2018-11-23] MEDS: RIFAXIMIN 550 MG TABLET PO SCH ×2 (08:34→16:01)
[2018-11-23] MEDS: LITHIUM CARBONATE 600 MG CAPSULE PO SCH ×2 (08:34→16:01)
[2018-11-23] MEDS: DIVALPROEX SODIUM 500 MG DR TABLET PO SCH ×2 (08:35→21:00)
[2018-11-23] MEDS: QUEtiapine FUMARATE 200 MG TABLET PO SCH ×3 (08:35→16:01)
[2018-11-23] MEDS: LORazepam 2 MG TABLET PO PRN (15:59)
[2018-11-23] MEDS: ChlorproMAZINE HCL 50 MG TABLET PO PRN ×2 (15:59→23:38)
[2018-11-23 16:00] VITALS: BP 118/77
[2018-11-23] MEDS: TraZODone HCL 100 MG TABLET PO SCH (21:00)
[2018-11-24 00:35] VITALS: BP 109/77
[2018-11-24] MEDS: LORazepam 2 MG TABLET PO PRN ×2 (01:39→16:25)
[2018-11-24 08:25] VITALS: BP 109/71
[2018-11-24] MEDS: ChlorproMAZINE HCL 50 MG TABLET PO PRN ×2 (08:43→16:26)
[2018-11-24] MEDS: QUEtiapine FUMARATE 200 MG TABLET PO SCH ×3 (08:43→16:25)
[2018-11-24] MEDS: LITHIUM CARBONATE 600 MG CAPSULE PO SCH ×2 (08:43→16:25)
[2018-11-24] MEDS: RIFAXIMIN 550 MG TABLET PO SCH ×2 (08:43→16:26)
[2018-11-24] MEDS: DIVALPROEX SODIUM 500 MG DR TABLET PO SCH ×2 (08:43→22:00)
[2018-11-24 16:00] VITALS: BP 112/66
[2018-11-24] MEDS: TraZODone HCL 100 MG TABLET PO SCH (22:00)
[2018-11-25 04:28] VITALS: BP 124/72
[2018-11-25] MEDS: ChlorproMAZINE HCL 50 MG TABLET PO PRN ×3 (05:20→20:43)
[2018-11-25 08:10] VITALS: BP 124/75
[2018-11-25] MEDS: LITHIUM CARBONATE 600 MG CAPSULE PO SCH ×2 (09:20→17:01)
[2018-11-25] MEDS: RIFAXIMIN 550 MG TABLET PO SCH ×2 (09:20→17:01)
[2018-11-25] MEDS: QUEtiapine FUMARATE 200 MG TABLET PO SCH ×3 (09:20→17:01)
[2018-11-25] MEDS: DIVALPROEX SODIUM 500 MG DR TABLET PO SCH ×2 (09:20→20:44)
[2018-11-25] MEDS: LORazepam 2 MG TABLET PO PRN ×3 (09:20→20:44)
[2018-11-25 16:29] VITALS: BP 124/77
[2018-11-25] MEDS: TraZODone HCL 100 MG TABLET PO SCH (20:44)
[2018-11-26 05:54] VITALS: BP 118/78
[2018-11-26 05:56] VITALS: BP 122/72
[2018-11-26] MEDS: QUEtiapine FUMARATE 200 MG TABLET PO SCH ×3 (08:07→16:23)
[2018-11-26] MEDS: RIFAXIMIN 550 MG TABLET PO SCH ×2 (08:07→16:23)
[2018-11-26] MEDS: DIVALPROEX SODIUM 500 MG DR TABLET PO SCH (08:07)
[2018-11-26] MEDS: LITHIUM CARBONATE 600 MG CAPSULE PO SCH ×2 (08:08→16:23)
[2018-11-26 08:09] VITALS: BP 110/60
[2018-11-26] MEDS: ChlorproMAZINE HCL 50 MG TABLET PO PRN (16:23)
[2018-11-26] MEDS: LORazepam 2 MG TABLET PO PRN (16:23)
[2018-11-26 16:27] VITALS: BP 128/63
[2018-11-26] MEDS: DIVALPROEX SODIUM 250 MG DR TABLET PO SCH (20:16)
[2018-11-26] MEDS: TraZODone HCL 100 MG TABLET PO SCH (20:16)
[2018-11-27 00:23] VITALS: BP 122/72
[2018-11-27] MEDS: ChlorproMAZINE HCL 50 MG TABLET PO PRN ×2 (00:41→16:16)
[2018-11-27] MEDS: LORazepam 2 MG TABLET PO PRN ×2 (00:41→16:16)
[2018-11-27 08:08] VITALS: BP 120/72
[2018-11-27] MEDS: LITHIUM CARBONATE 600 MG CAPSULE PO SCH ×2 (08:48→16:15)
[2018-11-27] MEDS: RIFAXIMIN 550 MG TABLET PO SCH ×2 (08:49→16:16)
[2018-11-27] MEDS: QUEtiapine FUMARATE 200 MG TABLET PO SCH ×3 (08:49→16:15)
[2018-11-27] MEDS: DIVALPROEX SODIUM 500 MG DR TABLET PO SCH (08:50)
[2018-11-27 16:35] VITALS: BP 117/63
[2018-11-27] MEDS: DIVALPROEX SODIUM 250 MG DR TABLET PO SCH (21:55)
[2018-11-27] MEDS: TraZODone HCL 100 MG TABLET PO SCH (21:55)
[2018-11-28 00:06] VITALS: BP 133/74
[2018-11-28] MEDS: ChlorproMAZINE HCL 50 MG TABLET PO PRN ×2 (06:57→16:50)
[2018-11-28] MEDS: LORazepam 2 MG TABLET PO PRN ×2 (06:57→16:50)
[2018-11-28] MEDS: DIVALPROEX SODIUM 500 MG DR TABLET PO SCH (08:20)
[2018-11-28] MEDS: QUEtiapine FUMARATE 200 MG TABLET PO SCH ×3 (08:20→16:50)
[2018-11-28] MEDS: RIFAXIMIN 550 MG TABLET PO SCH ×2 (08:21→16:50)
[2018-11-28] MEDS: LITHIUM CARBONATE 600 MG CAPSULE PO SCH ×2 (08:21→16:50)
[2018-11-28 08:29] VITALS: BP 106/69
[2018-11-28 16:00] VITALS: BP 125/71
[2018-11-28] MEDS: DIVALPROEX SODIUM 250 MG DR TABLET PO SCH (21:30)
[2018-11-28] MEDS: TraZODone HCL 100 MG TABLET PO SCH (21:30)
[2018-11-29 02:00] VITALS: BP 124/72
[2018-11-29 08:32] VITALS: BP 128/72
[2018-11-29] MEDS: LITHIUM CARBONATE 600 MG CAPSULE PO SCH ×2 (08:51→16:27)
[2018-11-29] MEDS: DIVALPROEX SODIUM 500 MG DR TABLET PO SCH (08:51)
[2018-11-29] MEDS: QUEtiapine FUMARATE 200 MG TABLET PO SCH ×3 (08:51→16:27)
[2018-11-29] MEDS: RIFAXIMIN 550 MG TABLET PO SCH ×2 (08:52→16:26)
[2018-11-29 16:00] VITALS: BP 116/78
[2018-11-29] MEDS: LORazepam 2 MG TABLET PO PRN (16:27)
[2018-11-29] MEDS: ChlorproMAZINE HCL 50 MG TABLET PO PRN (16:27)
[2018-11-29] MEDS: TraZODone HCL 100 MG TABLET PO SCH (22:01)
[2018-11-29] MEDS: DIVALPROEX SODIUM 250 MG DR TABLET PO SCH (22:01)
[2018-11-30 06:41] VITALS: BP 117/72
[2018-11-30] MEDS: ChlorproMAZINE HCL 50 MG TABLET PO PRN ×2 (06:43→16:47)
[2018-11-30] MEDS: LORazepam 2 MG TABLET PO PRN ×2 (06:43→16:48)
[2018-11-30] MEDS: LITHIUM CARBONATE 600 MG CAPSULE PO SCH ×2 (08:14→16:48)
[2018-11-30] MEDS: QUEtiapine FUMARATE 200 MG TABLET PO SCH ×3 (08:15→16:47)
[2018-11-30] MEDS: DIVALPROEX SODIUM 500 MG DR TABLET PO SCH (08:15)
[2018-11-30] MEDS: RIFAXIMIN 550 MG TABLET PO SCH ×2 (08:16→16:47)
[2018-11-30 08:40] VITALS: BP 121/73
[2018-11-30 16:00] VITALS: BP 112/79
[2018-11-30] MEDS: TraZODone HCL 100 MG TABLET PO SCH (21:43)
[2018-11-30] MEDS: DIVALPROEX SODIUM 250 MG DR TABLET PO SCH (21:43)
[2018-12-01 04:00] VITALS: BP 116/70
[2018-12-01 08:22] VITALS: BP 107/66
[2018-12-01] MEDS: LITHIUM CARBONATE 600 MG CAPSULE PO SCH ×2 (08:22→16:03)
[2018-12-01] MEDS: QUEtiapine FUMARATE 200 MG TABLET PO SCH ×3 (08:22→16:03)
[2018-12-01] MEDS: DIVALPROEX SODIUM 500 MG DR TABLET PO SCH (08:22)
[2018-12-01] MEDS: RIFAXIMIN 550 MG TABLET PO SCH ×2 (08:23→16:03)
[2018-12-01] MEDS: LORazepam 2 MG TABLET PO PRN ×2 (08:23→16:03)
[2018-12-01] MEDS: ChlorproMAZINE HCL 50 MG TABLET PO PRN (16:03)
[2018-12-01 16:18] VITALS: BP 122/72
[2018-12-01] MEDS: DIVALPROEX SODIUM 250 MG DR TABLET PO SCH (22:24)
[2018-12-01] MEDS: TraZODone HCL 100 MG TABLET PO SCH (22:24)
[2018-12-02 06:03] VITALS: BP 124/75
[2018-12-02 08:23] VITALS: BP_SYST 119
[2018-12-02] MEDS: RIFAXIMIN 550 MG TABLET PO SCH ×2 (08:28→16:15)
[2018-12-02] MEDS: LORazepam 2 MG TABLET PO PRN ×2 (08:28→16:16)
[2018-12-02] MEDS: QUEtiapine FUMARATE 200 MG TABLET PO SCH ×3 (08:28→16:15)
[2018-12-02] MEDS: DIVALPROEX SODIUM 500 MG DR TABLET PO SCH (08:28)
[2018-12-02] MEDS: LITHIUM CARBONATE 600 MG CAPSULE PO SCH ×2 (08:29→16:15)
[2018-12-02 16:00] VITALS: BP 110/62
[2018-12-02] MEDS: ChlorproMAZINE HCL 50 MG TABLET PO PRN (16:16)
[2018-12-02] MEDS: DIVALPROEX SODIUM 250 MG DR TABLET PO SCH (22:26)
[2018-12-02] MEDS: TraZODone HCL 100 MG TABLET PO SCH (22:26)
[2018-12-03 00:53] VITALS: BP 115/78
[2018-12-03 08:02] VITALS: BP 119/58
[2018-12-03] MEDS: DIVALPROEX SODIUM 500 MG DR TABLET PO SCH (08:15)
[2018-12-03] MEDS: RIFAXIMIN 550 MG TABLET PO SCH ×2 (08:15→16:06)
[2018-12-03] MEDS: QUEtiapine FUMARATE 200 MG TABLET PO SCH ×3 (08:15→16:06)
[2018-12-03] MEDS: LITHIUM CARBONATE 600 MG CAPSULE PO SCH ×2 (08:15→16:06)
[2018-12-03 16:00] VITALS: BP 112/66
[2018-12-03] MEDS: DIVALPROEX SODIUM 250 MG DR TABLET PO SCH (20:16)
[2018-12-03] MEDS: TraZODone HCL 100 MG TABLET PO SCH (20:16)
[2018-12-03] MEDS: LORazepam 2 MG TABLET PO PRN (20:16)
[2018-12-04 06:58] VITALS: BP 110/72
[2018-12-04] MEDS: RIFAXIMIN 550 MG TABLET PO SCH ×2 (08:22→16:00)
[2018-12-04] MEDS: QUEtiapine FUMARATE 200 MG TABLET PO SCH ×3 (08:23→16:00)
[2018-12-04] MEDS: DIVALPROEX SODIUM 500 MG DR TABLET PO SCH (08:23)
[2018-12-04] MEDS: LITHIUM CARBONATE 600 MG CAPSULE PO SCH ×2 (08:23→16:00)
[2018-12-04 08:49] VITALS: BP 119/87
[2018-12-04] MEDS: LORazepam 2 MG TABLET PO PRN ×3 (10:36→22:05)
[2018-12-04 16:00] VITALS: BP 128/72
[2018-12-04] MEDS: ChlorproMAZINE HCL 50 MG TABLET PO PRN (16:00)
[2018-12-04] MEDS: DIVALPROEX SODIUM 250 MG DR TABLET PO SCH (22:05)
[2018-12-04] MEDS: TraZODone HCL 100 MG TABLET PO SCH (22:05)
[2018-12-05 08:00] VITALS: BP 140/82
[2018-12-05] MEDS: LITHIUM CARBONATE 600 MG CAPSULE PO SCH ×2 (08:01→17:02)
[2018-12-05] MEDS: QUEtiapine FUMARATE 200 MG TABLET PO SCH ×3 (08:01→17:02)
[2018-12-05] MEDS: DIVALPROEX SODIUM 500 MG DR TABLET PO SCH (08:01)
[2018-12-05] MEDS: RIFAXIMIN 550 MG TABLET PO SCH ×2 (08:02→17:02)
[2018-12-05] MEDS: LORazepam 2 MG TABLET PO PRN ×2 (11:30→17:16)
[2018-12-05 16:18] VITALS: BP 136/84
[2018-12-05] MEDS: ChlorproMAZINE HCL 50 MG TABLET PO PRN (17:17)
[2018-12-05] MEDS: TraZODone HCL 100 MG TABLET PO SCH (22:07)
[2018-12-05] MEDS: DIVALPROEX SODIUM 250 MG DR TABLET PO SCH (22:07)
[2018-12-06] MEDS: LORazepam 2 MG TABLET PO PRN ×2 (03:32→10:27)
[2018-12-06] MEDS: ChlorproMAZINE HCL 50 MG TABLET PO PRN (03:32)
[2018-12-06 05:11] VITALS: BP 111/66
[2018-12-06 08:29] VITALS: BP 118/72
[2018-12-06] MEDS: DIVALPROEX SODIUM 500 MG DR TABLET PO SCH (08:29)
[2018-12-06] MEDS: LITHIUM CARBONATE 600 MG CAPSULE PO SCH ×2 (08:29→17:06)
[2018-12-06] MEDS: QUEtiapine FUMARATE 200 MG TABLET PO SCH ×3 (08:29→17:06)
[2018-12-06] MEDS: RIFAXIMIN 550 MG TABLET PO SCH ×2 (08:29→17:06)
[2018-12-06 16:00] VITALS: BP 140/87
[2018-12-06] MEDS: DIVALPROEX SODIUM 250 MG DR TABLET PO SCH (21:57)
[2018-12-06] MEDS: TraZODone HCL 100 MG TABLET PO SCH (21:58)
[2018-12-07 06:42] VITALS: BP 131/79
[2018-12-07] MEDS: QUEtiapine FUMARATE 200 MG TABLET PO SCH ×2 (08:08→12:16)
[2018-12-07] MEDS: RIFAXIMIN 550 MG TABLET PO SCH (08:08)
[2018-12-07] MEDS: LITHIUM CARBONATE 600 MG CAPSULE PO SCH (08:08)
[2018-12-07] MEDS: DIVALPROEX SODIUM 500 MG DR TABLET PO SCH (08:08)
[2018-12-07 08:09] VITALS: BP 100/64
[2018-12-07] MEDS ORDERED: TRAZ-220 PO (12:51)
[2018-12-07] MEDS ORDERED: CHLO50 PO (12:51)
[2018-12-07] MEDS ORDERED: LORA2TAB2 PO (12:51)
[2018-12-07] MEDS ORDERED: IBUP-1506 PO (12:54)
[2018-12-07] MEDS ORDERED: ACET-2247 PO (12:54)
[2018-12-07] MEDS: LORazepam 2 MG TABLET PO PRN (13:56)
== END 2018-12-07 15:00 | disposition short-term general hospital (02) | DRG 750 ==
LOC: B3A 16:54
PROVIDERS: ADMIT Psychiatry & Neurology Psychiatry; ATTEND Psychiatry & Neurology Psychiatry
DX: F25.0 Schizoaffective disorder, bipolar type (principal); E87.1 Hypo-osmolality and hyponatremia; K74.60 Unspecified cirrhosis of liver; J44.9 Chronic obstructive pulmonary disease, unspecified; I10 Essential (primary) hypertension; E78.5 Hyperlipidemia, unspecified; F17.200 Nicotine dependence, unspecified, uncomplicated; F10.10 Alcohol abuse, uncomplicated; Z71.6 Tobacco abuse counseling; Z71.41 Alcohol abuse counseling and surveillance of alcoholic; Z79.899 Other long term (current) drug therapy
CPT/HCPCS: 80307; 83036; 84439; 84443; 87081; J1200; J1630; J2060; J3230